=== PATIENT | male | born 1945 | race Caucasian/White ===

== ENCOUNTER → 2018-03-10 11:35 | Outpatient (CLI) | payer MEDICARE, SELFPAY ==
[2018-03-10 12:54] LABS: BUN Creatinine Ratio 23.8 (6-22); Blood Urea Nitrogen 19 mg/dL (9-20); Calcium 9.7 mg/dL (8.4-10.2); Carbon Dioxide 30 mmol/L (22-32); Chloride 107 mmol/L (98-107); Estimated Glomerular Filt Rate > 60.0 mL/min (>60); Glucose 94 mg/dL (80-110); HEMOLYSIS < 15 (0-50); Potassium 4.7 mmol/L (3.4-5.1); Sodium 145 mmol/L (137-145)
== END ==
PROVIDERS: PCP Internal Medicine; Visit Provider Nurse Practitioner Family
DX: Z51.81 Encounter for therapeutic drug level monitoring (principal); Z79.899 Other long term (current) drug therapy
CPT/HCPCS: 36415; 80048

== ENCOUNTER → 2018-05-02 13:31 | Outpatient (CLI) | payer MEDICARE, SELFPAY ==
[2018-05-02 14:10] LABS: BUN Creatinine Ratio 33.8 (6-22); Blood Urea Nitrogen 27 mg/dL (9-20); Calcium 9.6 mg/dL (8.4-10.2); Carbon Dioxide 32 mmol/L (22-32); Chloride 104 mmol/L (98-107); Estimated Glomerular Filt Rate > 60.0 mL/min (>60); Glucose 102 mg/dL (80-110); HEMOLYSIS < 15 (0-50); Potassium 4.4 mmol/L (3.4-5.1); Sodium 145 mmol/L (137-145)
== END ==
PROVIDERS: PCP Internal Medicine; Visit Provider Nurse Practitioner Family
DX: Z51.81 Encounter for therapeutic drug level monitoring (principal); Z79.899 Other long term (current) drug therapy
CPT/HCPCS: 36415; 80048

== ENCOUNTER → 2018-10-01 13:41 | Outpatient (CLI) | payer MEDICARE, SELFPAY ==
[2018-10-01 14:41] LABS: BUN Creatinine Ratio 26.7 (6-22); Blood Urea Nitrogen 24 mg/dL (9-20); Calcium 9.6 mg/dL (8.4-10.2); Carbon Dioxide 27 mmol/L (22-32); Chloride 104 mmol/L (98-107); Estimated Glomerular Filt Rate > 60.0 mL/min (>60); Glucose 117 mg/dL (80-110); HEMOLYSIS 17 (0-50); Potassium 4.2 mmol/L (3.4-5.1); Sodium 141 mmol/L (137-145)
== END ==
PROVIDERS: Family Provider Internal Medicine; PCP Internal Medicine; Visit Provider Nurse Practitioner Family
DX: Z51.81 Encounter for therapeutic drug level monitoring (principal); Z79.899 Other long term (current) drug therapy
CPT/HCPCS: 36415; 80048

== ENCOUNTER → 2019-05-28 10:23 | Outpatient (CLI) | payer MEDICARE, SELFPAY ==
[2019-05-28 12:05] LABS: BUN Creatinine Ratio 25.6 (6-22); Blood Urea Nitrogen 23 mg/dL (9-20); Calcium 9.8 mg/dL (8.4-10.2); Carbon Dioxide 30 mmol/L (22-32); Chloride 103 mmol/L (98-107); Estimated Glomerular Filt Rate > 60.0 mL/min (>60); Glucose 72 mg/dL (80-110); HEMOLYSIS < 15 (0-50); Potassium 4.5 mmol/L (3.4-5.1); Sodium 139 mmol/L (137-145)
== END ==
PROVIDERS: Family Provider Internal Medicine; PCP Internal Medicine; Visit Provider Internal Medicine Cardiovascular Disease
DX: Z51.81 Encounter for therapeutic drug level monitoring (principal); Z79.899 Other long term (current) drug therapy
CPT/HCPCS: 36415; 80048

== ENCOUNTER → 2019-09-03 09:51 | Outpatient (CLI) | payer MEDICARE, SELFPAY ==
[2019-09-03 12:28] LABS: BUN Creatinine Ratio 22.5 (6-22); Blood Urea Nitrogen 18 mg/dL (9-20); Calcium 9.9 mg/dL (8.4-10.2); Carbon Dioxide 27 mmol/L (22-32); Chloride 102 mmol/L (98-107); Estimated Glomerular Filt Rate > 60.0 mL/min (>60); Glucose 87 mg/dL (80-110); HEMOLYSIS < 15 (0-50); Potassium 4.7 mmol/L (3.4-5.1); Sodium 141 mmol/L (137-145)
== END ==
PROVIDERS: Family Provider Internal Medicine; PCP Internal Medicine; Referring Provider Internal Medicine Cardiovascular Disease; Visit Provider Internal Medicine Cardiovascular Disease
DX: Z51.81 Encounter for therapeutic drug level monitoring (principal); Z79.899 Other long term (current) drug therapy
CPT/HCPCS: 36415; 80048

== ENCOUNTER → 2020-03-23 13:27 | Outpatient (CLI) | payer MEDICARE, OTHER, SELFPAY ==
[2020-03-23 15:13] LABS: BUN Creatinine Ratio 30.9 (6-22); Blood Urea Nitrogen 25 mg/dL (9-20); Calcium 9.6 mg/dL (8.4-10.2); Carbon Dioxide 31 mmol/L (22-32); Chloride 106 mmol/L (98-107); Estimated Glomerular Filt Rate > 60.0 mL/min (>60); Glucose 105 mg/dL (80-110); HEMOLYSIS < 15 (0-50); Potassium 4.7 mmol/L (3.4-5.1); Sodium 141 mmol/L (137-145)
== END ==
PROVIDERS: Family Provider Internal Medicine; PCP Internal Medicine; Referring Provider Internal Medicine Cardiovascular Disease; Visit Provider Internal Medicine Cardiovascular Disease
DX: Z51.81 Encounter for therapeutic drug level monitoring (principal); Z79.899 Other long term (current) drug therapy
CPT/HCPCS: 36415; 80048

== ENCOUNTER → 2020-06-14 13:44 | Outpatient (CLI) | payer MEDICARE, OTHER, SELFPAY ==
[2020-06-14 16:06] LABS: BUN Creatinine Ratio 21.7 (6-22); Blood Urea Nitrogen 20 mg/dL (9-20); Calcium 9.3 mg/dL (8.4-10.2); Carbon Dioxide 28 mmol/L (22-32); Chloride 106 mmol/L (98-107); Estimated Glomerular Filt Rate > 60.0 mL/min (>60); Glucose 94 mg/dL (80-110); HEMOLYSIS < 15 (0-50); Potassium 4.6 mmol/L (3.4-5.1); Sodium 140 mmol/L (137-145)
== END ==
PROVIDERS: Family Provider Internal Medicine; PCP Internal Medicine; Referring Provider Nurse Practitioner Family; Visit Provider Nurse Practitioner Family
DX: Z51.81 Encounter for therapeutic drug level monitoring (principal); Z79.899 Other long term (current) drug therapy
CPT/HCPCS: 36415; 80048

== ENCOUNTER → 2020-10-31 11:19 | Outpatient (CLI) | payer MEDICARE, OTHER, SELFPAY ==
[2020-10-31 12:45] LABS: BUN Creatinine Ratio 28.2 (6-22); Blood Urea Nitrogen 22 mg/dL (9-20); Calcium 9.6 mg/dL (8.4-10.2); Carbon Dioxide 27 mmol/L (22-32); Chloride 104 mmol/L (98-107); Estimated Glomerular Filt Rate > 60.0 mL/min (>60); Glucose 107 mg/dL (80-110); HEMOLYSIS < 15 (0-50); Potassium 4.8 mmol/L (3.4-5.1); Sodium 139 mmol/L (137-145)
== END ==
PROVIDERS: Family Provider Internal Medicine; PCP Internal Medicine; Referring Provider Nurse Practitioner Family; Visit Provider Nurse Practitioner Family
DX: Z51.81 Encounter for therapeutic drug level monitoring (principal); Z79.899 Other long term (current) drug therapy
CPT/HCPCS: 36415; 80048

== ENCOUNTER → 2021-05-23 13:13 | Outpatient (CLI) | payer MEDICARE, OTHER, SELFPAY ==
[2021-05-23 16:09] LABS: BUN Creatinine Ratio 22.5 (6-22); Blood Urea Nitrogen 18 mg/dL (9-20); Calcium 9.6 mg/dL (8.4-10.2); Carbon Dioxide 29 mmol/L (22-32); Chloride 107 mmol/L (98-107); Estimated Glomerular Filt Rate > 60.0 mL/min (>60); Glucose 105 mg/dL (80-110); HEMOLYSIS < 15 (0-50); Potassium 4.8 mmol/L (3.4-5.1); Sodium 143 mmol/L (137-145)
== END ==
PROVIDERS: Family Provider Internal Medicine; PCP Internal Medicine; Referring Provider Nurse Practitioner Acute Care; Visit Provider Nurse Practitioner Acute Care
DX: Z51.81 Encounter for therapeutic drug level monitoring (principal); Z79.899 Other long term (current) drug therapy
CPT/HCPCS: 36415; 80048

== ENCOUNTER → 2021-07-01 12:08 | Outpatient (CLI) | payer MEDICARE, OTHER, SELFPAY ==
[2021-07-01 18:14] LABS: Alanine Aminotransferase 55 IU/L (<50); Albumin 4.4 g/dL (3.5-5.0); Alkaline Phosphatase 32 U/L (38-126); Aspartate Aminotransferase 56 IU/L (17-59); BUN Creatinine Ratio 29.9 (6-22); Bilirubin Total 0.8 mg/dL (0.2-1.3); Blood Urea Nitrogen 23 mg/dL (9-20); Calcium 9.6 mg/dL (8.4-10.2); Carbon Dioxide 30 mmol/L (22-32); Chloride 107 mmol/L (98-107); Cholesterol 138 mg/dL (140-199); Estimated Glomerular Filt Rate > 60.0 mL/min (>60); Globulin 2.2 g/dL (1.7-4.1); Glucose 100 mg/dL (80-110); HDL Cholesterol 74 mg/dL (40-60); HEMOLYSIS < 15 (0-50); LDL Cholesterol Calculated 42 mg/dL (<100); Potassium 4.9 mmol/L (3.4-5.1); Sodium 139 mmol/L (137-145); Total Protein 6.6 g/dL (6.3-8.2); Triglycerides 109 mg/dL (35-150)
== END ==
PROVIDERS: Family Provider Internal Medicine; PCP Internal Medicine; Referring Provider Internal Medicine; Visit Provider Internal Medicine
DX: E78.2 Mixed hyperlipidemia (principal); I48.0 Paroxysmal atrial fibrillation
CPT/HCPCS: 36415; 80053; 80061

== ENCOUNTER → 2021-10-10 14:10 | Outpatient (CLI) | payer MEDICARE, OTHER, SELFPAY ==
[2021-10-10 15:49] LABS: BUN Creatinine Ratio 32.1 (6-22); Blood Urea Nitrogen 25 mg/dL (9-20); Calcium 9.4 mg/dL (8.4-10.2); Carbon Dioxide 26 mmol/L (22-32); Chloride 108 mmol/L (98-107); Estimated Glomerular Filt Rate > 60.0 mL/min (>60); Glucose 100 mg/dL (80-110); HEMOLYSIS < 15 (0-50); Potassium 4.5 mmol/L (3.4-5.1); Sodium 142 mmol/L (137-145)
== END ==
PROVIDERS: Family Provider Internal Medicine; PCP Internal Medicine; Referring Provider Nurse Practitioner Acute Care; Visit Provider Nurse Practitioner Acute Care
DX: Z51.81 Encounter for therapeutic drug level monitoring (principal); Z79.899 Other long term (current) drug therapy
CPT/HCPCS: 36415; 80048

== ENCOUNTER 2021-11-27 14:15 | Outpatient (RCR) | payer MEDICARE, OTHER, SELFPAY ==
--- NOTE | 2021-11-27 16:00 | PT.OIE ---
Current Diagnoses Benign paroxysmal vertigo, unspecified ear (11/27/21) Past Medical History (Last Updated 11/13/21 @ 12:20 by Alfredo Ochoa MD) BPPV (benign paroxysmal positional vertigo) Chronic anticoagulation Excessive daytime sleepiness Glaucoma Insomnia Mixed hyperlipidemia Obstructive sleep apnea of adult (~2013) Paroxysmal atrial fibrillation Primary osteoarthritis involving multiple joints Snoring Ulnar neuropathy of left upper extremity Visit Care Team Role Provider Type Alfredo Ochoa MD Attending Provider Physician Family Provider Primary Care Provider Referring Provider Specialty: Internal Medicine Address: [address] [place] [address], [facility] Email: [email or web address] Physical Therapy Initial Evaluation PT-OP-A Visit Information Start: 11/26/21 12:54 Freq: Status: Active Protocol: Document 11/27/21 14:31 AMB (Rec: 11/27/21 14:46 AMB [id number]) Out-Patient Physical Therapy Visit Information Visit Information Visit Type Initial Evaluation PT-OP-B Current Condition Start: 11/26/21 12:54 Freq: Status: Active Protocol: Document 11/27/21 14:31 AMB (Rec: 11/27/21 14:46 AMB [id number]) Current Condition History of Current Condition Onset Date 25 years Current Complaints dizzines History of Current Condition Would get 3-4 attacks in a year and have just dealt with it for years. Dizziness usually starts by getting up early in the morning. Saw an ENT 10-15 years ago and got really sick from the maneuvers . Not as acute now, but persisting longer. Used to vomit with them, not nauseous any more. Rolling over to the right to get out of bed and that makes him symptomatic. Had a concussion as a child, but otherwise denies migraines , ear pressure, ear pain, hearing changes, double vision . Prior Functional Status Baseline Function- ADL's Independent Baseline Function- Mobility Independent Current Functional Impairments (Reported) Functional Limitations- ADL's Difficulty getting out of bed and looking up. 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 PT-OP-C Subjective Start: 11/26/21 12:54 Freq: Status: Active Protocol: Document 11/27/21 14:30 AMB (Rec: 11/28/21 08:15 AMB [id number]) Patient Questionnaires Dizziness Handicap Inventory DHI Score 25 DHI Functional Impairment 20 to 39% Impaired (Score 20- 39) PT-OP-O Vestibular Start: 11/26/21 12:54 Freq: Status: Active Protocol: Document 11/27/21 14:30 AMB (Rec: 11/28/21 08:15 AMB [id number]) Vestibular Assessment Visual Testing Smooth Pursuits Horizontal WFL Smooth Pursuits Vertical WFL Saccades Horizontal WFL Saccades Vertical WFL Thrust Head Negative DVA (Line Degradation) 5 Vestibulo-Ocular Reflex (VOR1) Negative Positional Testing [place]-Hallpike Negative Left,Negative Right Rolling Test Negative Left,Negative Right Vestibular Function Tests mCTSIB Position 1 good mCTSIB Position 2 good mCTSIB Position 3 good mCTSIB Position 4 increased ankle motion but no LOB Comments Vestibular Comments Denies neck pain. 5 line deviation with DVA (wearing transitions), but then does not report any blurring or double vision with quick head turn PT-OP-T Assessment and Plan Start: 11/26/21 12:54 Freq: Status: Active Protocol: Document 11/27/21 14:30 AMB (Rec: 11/28/21 08:15 AMB [id number]) Physical Therapy Assessment Rehab Potential Rehabilitation Potential Good Evaluation Complexity Number of Personal Factors/Comorbidities 0 Number of Body Systems Impaired 1-2 Clinical Presentation at Evaluation Stable Impairments Impairments Vestibular Goals Two Impairment Dizziness Short Term Goal (STG) Edgar will get out of bed without dizziness. STG Duration 4 weeks One Impairment self Shira manuever Short Term Goal (STG) Edgar will be independent in performing an Shira manuever. STG Duration 4 weeks Assessment Summary Assessment Edgar attends physical therapy with a long history of recurrent dizziness/vertigo. He specifically denies hearing changes and was seen by an ENT years ago. He personally feels he has had recurrent BPPV. He did not show any signs of BPPV today, although he admits he is having a good day today. He was educated in self Shira manuevers and the nature of BPPV was discussed. He is considering returning to PT if he does get symptoms over the next couple of weeks. If he remains asymptomatic we will discharge and he was instructed to request referral the next time he gets a bout of dizziness. Physical Therapy Plan Frequency and Duration Frequency of Treatment 1x/Week Duration of Treatment 4 weeks Plan of Care Start Date 11/27/21 Plan of Care End Date 12/28/21 Therapeutic Interventions Therapeutic Interventions Balance Training,Canalithic Repositioning,Manual Therapy, Neuromuscular Re-education, Self-Care/Home Management, Therapeutic Activities, Therapeutic Exercises, Vestibular Rehabilitation Next Visit Focus/Plan Next Note Type Treatment Note Next Visit Plan recheck bilateral [place] Hallpike
--- NOTE | 2021-11-27 16:00 | PT.OPPOC ---
Addendum entered and electronically signed by Mikki Workman, PT 11/28/21 09:24: meek PERDUE signature Original Note: Physical, Occupational & Speech Therapy At [facility] Current Diagnoses Benign paroxysmal vertigo, unspecified ear (11/27/21) Visit Care Team Role Provider Type Alfredo Ochoa MD Attending Provider Physician Family Provider Primary Care Provider Referring Provider Specialty: Internal Medicine Address: [address] [place] [address], [facility] Email: [email or web address] Plan Of Care PT-OP-T Assessment and Plan Start: 11/26/21 12:54 Freq: Status: Active Protocol: Document 11/27/21 14:30 AMB (Rec: 11/28/21 08:15 AMB [id number]) Physical Therapy Assessment Rehab Potential Rehabilitation Potential Good Evaluation Complexity Number of Personal Factors/Comorbidities 0 Number of Body Systems Impaired 1-2 Clinical Presentation at Evaluation Stable Impairments Impairments Vestibular Goals Two Impairment Dizziness Short Term Goal (STG) Edgar will get out of bed without dizziness. STG Duration 4 weeks One Impairment self Shira manuever Short Term Goal (STG) Edgar will be independent in performing an Shira manuever. STG Duration 4 weeks Assessment Summary Assessment Edgar attends physical therapy with a long history of recurrent dizziness/vertigo. He specifically denies hearing changes and was seen by an ENT years ago. He personally feels he has had recurrent BPPV. He did not show any signs of BPPV today, although he admits he is having a good day today. He was educated in self Shira manuevers and the nature of BPPV was discussed. He is considering returning to PT if he does get symptoms over the next couple of weeks. If he remains asymptomatic we will discharge and he was instructed to request referral the next time he gets a bout of dizziness. Physical Therapy Plan Frequency and Duration Frequency of Treatment 1x/Week Duration of Treatment 4 weeks Plan of Care Start Date 11/27/21 Plan of Care End Date 12/28/21 Therapeutic Interventions Therapeutic Interventions Balance Training,Canalithic Repositioning,Manual Therapy, Neuromuscular Re-education, Self-Care/Home Management, Therapeutic Activities, Therapeutic Exercises, Vestibular Rehabilitation Next Visit Focus/Plan Next Note Type Treatment Note Next Visit Plan recheck bilateral [place] Hallpike Plan of Care Dates Plan of Care Start Date 11/27/21 Plan of Care End Date 12/28/21 Electronically Signed by: Mikki Workman, ALMAS 11/28/21 0922 If you are in agreement with this Plan of Care, please return a signed and dated copy. I have reviewed this Plan of Care and certify that the skilled therapy services above are required to meet the patient?s needs. Physician Signature Date Printed Name and Credentials Clinical Instructor Signature Printed Name and Credentials
--- NOTE | 2021-12-17 11:51 | PT.OPDS ---
Current Diagnoses Benign paroxysmal vertigo, unspecified ear (11/27/21) Visit Care Team Role Provider Type Alfredo Ochoa MD Attending Provider Physician Family Provider Primary Care Provider Referring Provider Specialty: Internal Medicine Address: [address] [place] [address], [facility] Email: [email or web address] Visit Number Visit Number 1 Discharge Summary PT-OP-B Current Condition Start: 11/26/21 12:54 Freq: Status: Active Protocol: Document 11/27/21 14:31 AMB (Rec: 11/27/21 14:46 AMB [id number]) Current Condition History of Current Condition Onset Date 25 years Current Complaints dizzines History of Current Condition Would get 3-4 attacks in a year and have just dealt with it for years. Dizziness usually starts by getting up early in the morning. Saw an ENT 10-15 years ago and got really sick from the maneuvers . Not as acute now, but persisting longer. Used to vomit with them, not nauseous any more. Rolling over to the right to get out of bed and that makes him symptomatic. Had a concussion as a child, but otherwise denies migraines , ear pressure, ear pain, hearing changes, double vision . Prior Functional Status Baseline Function- ADL's Independent Baseline Function- Mobility Independent Current Functional Impairments (Reported) Functional Limitations- ADL's Difficulty getting out of bed and looking up. 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 PT-OP-C Subjective Start: 11/26/21 12:54 Freq: Status: Active Protocol: Document 11/27/21 14:30 AMB (Rec: 11/28/21 08:15 AMB [id number]) Patient Questionnaires Dizziness Handicap Inventory DHI Score 25 DHI Functional Impairment 20 to 39% Impaired (Score 20- 39) PT-OP-O Vestibular Start: 11/26/21 12:54 Freq: Status: Active Protocol: Document 11/27/21 14:30 AMB (Rec: 11/28/21 08:15 AMB [id number]) Vestibular Assessment Visual Testing Smooth Pursuits Horizontal WFL Smooth Pursuits Vertical WFL Saccades Horizontal WFL Saccades Vertical WFL Thrust Head Negative DVA (Line Degradation) 5 Vestibulo-Ocular Reflex (VOR1) Negative Positional Testing [place]-Hallpike Negative Left,Negative Right Rolling Test Negative Left,Negative Right Vestibular Function Tests mCTSIB Position 1 good mCTSIB Position 2 good mCTSIB Position 3 good mCTSIB Position 4 increased ankle motion but no LOB Comments Vestibular Comments Denies neck pain. 5 line deviation with DVA (wearing transitions), but then does not report any blurring or double vision with quick head turn PT-OP-T Assessment and Plan Start: 11/26/21 12:54 Freq: Status: Active Protocol: Document 12/17/21 11:50 AMB (Rec: 12/17/21 11:50 [facility] [id number]) Physical Therapy Assessment Assessment Summary Assessment Pt cancelled his last scheduled appointment per discussion at his evaluation. If he did not have a return of BPPV like sx he would cancel his appointment, and if his sx return he would get another referral from his PCP.
== END 2021-12-18 14:16 ==
LOC: PHYS 14:15
PROVIDERS: Family Provider Internal Medicine; PCP Internal Medicine; Referring Provider Internal Medicine; Visit Provider Internal Medicine
DX: H81.10 Benign paroxysmal vertigo, unspecified ear (principal)
CPT/HCPCS: 97161

== ENCOUNTER → 2021-12-29 17:13 | Outpatient (CLI) | payer MEDICARE, OTHER, SELFPAY ==
[2021-12-30 02:16] LABS: BUN Creatinine Ratio 34.1 (6-22); Blood Urea Nitrogen 31 mg/dL (9-20); Calcium 9.4 mg/dL (8.4-10.2); Carbon Dioxide 26 mmol/L (22-32); Chloride 107 mmol/L (98-107); Estimated Glomerular Filt Rate > 60 mL/min (>60); Glucose 89 mg/dL (80-110); HEMOLYSIS < 15 (0-50); Potassium 4.4 mmol/L (3.4-5.1); Sodium 141 mmol/L (137-145)
== END ==
PROVIDERS: Family Provider Internal Medicine; PCP Internal Medicine; Referring Provider Nurse Practitioner Acute Care; Visit Provider Nurse Practitioner Acute Care
DX: Z51.81 Encounter for therapeutic drug level monitoring (principal); Z79.899 Other long term (current) drug therapy
CPT/HCPCS: 36415; 80048

== ENCOUNTER → 2022-03-29 13:23 | Outpatient (CLI) | payer MEDICARE, OTHER, SELFPAY ==
[2022-03-29 15:53] LABS: BUN Creatinine Ratio 37.8 (6-22); Blood Urea Nitrogen 28 mg/dL (9-20); Calcium 9.2 mg/dL (8.4-10.2); Carbon Dioxide 28 mmol/L (22-32); Chloride 105 mmol/L (98-107); Estimated Glomerular Filt Rate > 60 mL/min (>60); Glucose 103 mg/dL (80-110); HEMOLYSIS < 15 (0-50); Potassium 4.5 mmol/L (3.4-5.1); Sodium 140 mmol/L (137-145)
== END ==
PROVIDERS: Family Provider Internal Medicine; PCP Internal Medicine; Referring Provider Nurse Practitioner Family; Visit Provider Nurse Practitioner Family
DX: I48.19 Other persistent atrial fibrillation (principal); Z51.81 Encounter for therapeutic drug level monitoring; Z79.899 Other long term (current) drug therapy
CPT/HCPCS: 36415; 80048

== ENCOUNTER → 2022-07-03 10:52 | Outpatient (CLI) | payer MEDICARE, OTHER, SELFPAY ==
[2022-07-03 11:55] LABS: Alanine Aminotransferase 84 IU/L (<50); Albumin 4.6 g/dL (3.5-5.0); Albumin Globulin Ratio 1.9 (1.0-2.8); Alkaline Phosphatase 35 U/L (38-126); Aspartate Aminotransferase 66 IU/L (17-59); BUN Creatinine Ratio 36.4 (6-22); Bilirubin Total 0.6 mg/dL (0.2-1.3); Blood Urea Nitrogen 28 mg/dL (9-20); Calcium 9.3 mg/dL (8.4-10.2); Carbon Dioxide 30 mmol/L (22-32); Chloride 105 mmol/L (98-107); Estimated Glomerular Filt Rate > 60 mL/min (>60); Globulin 2.4 g/dL (1.7-4.1); Glucose 89 mg/dL (80-110); HEMOLYSIS < 15 (0-50); Potassium 4.4 mmol/L (3.4-5.1); Sodium 142 mmol/L (137-145)
== END ==
PROVIDERS: Family Provider Internal Medicine; PCP Internal Medicine; Referring Provider Nurse Practitioner; Visit Provider Nurse Practitioner
DX: I48.19 Other persistent atrial fibrillation (principal)
CPT/HCPCS: 36415; 80053

== ENCOUNTER → 2023-01-25 10:50 | Outpatient (CLI) | payer MEDICARE, OTHER, SELFPAY ==
[2023-01-25 12:41] LABS: Alanine Aminotransferase 41 IU/L (<50); Albumin 4.2 g/dL (3.5-5.0); Albumin Globulin Ratio 1.8 (1.0-2.8); Alkaline Phosphatase 37 U/L (38-126); Aspartate Aminotransferase 46 IU/L (17-59); BUN Creatinine Ratio 32.4 (6-22); Bilirubin Total 0.9 mg/dL (0.2-1.3); Blood Urea Nitrogen 23 mg/dL (9-20); Carbon Dioxide 30 mmol/L (22-32); Chloride 103 mmol/L (98-107); Estimated Glomerular Filt Rate > 60 mL/min (>60); Globulin 2.4 g/dL (1.7-4.1); Glucose 93 mg/dL (80-110); HEMOLYSIS < 15 (0-50); Potassium 4.2 mmol/L (3.4-5.1); Sodium 138 mmol/L (137-145); Total Protein 6.6 g/dL (6.3-8.2)
== END ==
PROVIDERS: Family Provider Internal Medicine; PCP Internal Medicine; Referring Provider Nurse Practitioner; Visit Provider Nurse Practitioner
DX: I48.19 Other persistent atrial fibrillation (principal)
CPT/HCPCS: 36415; 80053

== ENCOUNTER → 2023-04-03 09:21 | Outpatient (CLI) | payer MEDICARE, OTHER, SELFPAY ==
[2023-04-03 11:58] LABS: Prostate Specific Antigen 1.77 ng/mL (0.10-4.00)
== END ==
PROVIDERS: Family Provider Internal Medicine; PCP Internal Medicine; Referring Provider Internal Medicine; Visit Provider Internal Medicine
DX: N40.1 Benign prostatic hyperplasia with lower urinary tract symptoms (principal); N13.8 Other obstructive and reflux uropathy; R31.0 Gross hematuria
CPT/HCPCS: 36415; 84153

== ENCOUNTER → 2023-05-07 14:45 | Outpatient (CLI) | payer MEDICARE, OTHER, SELFPAY ==
[2023-05-07 15:44] LABS: Blood Urea Nitrogen 27 mg/dL (9-20); Calcium 9.6 mg/dL (8.4-10.2); Carbon Dioxide 29 mmol/L (22-32); Chloride 102 mmol/L (98-107); Estimated Glomerular Filt Rate > 60 mL/min (>60); Glucose 106 mg/dL (80-110); HEMOLYSIS 19 (0-50); Magnesium 1.9 mg/dL (1.6-2.3); Potassium 4.6 mmol/L (3.4-5.1); Sodium 137 mmol/L (137-145)
== END ==
PROVIDERS: Family Provider Internal Medicine; PCP Internal Medicine; Referring Provider Nurse Practitioner Acute Care; Visit Provider Nurse Practitioner Acute Care
DX: I48.19 Other persistent atrial fibrillation (principal); Z51.81 Encounter for therapeutic drug level monitoring; Z79.899 Other long term (current) drug therapy
CPT/HCPCS: 36415; 80048; 83735

== ENCOUNTER → 2023-06-18 11:00 | Outpatient (CLI) | payer MEDICARE, OTHER, SELFPAY ==
--- NOTE | 2023-06-18 11:03 | DI.CT.S_ITS ---
PROCEDURE: CT IVP A/P W/WO INDICATIONS: Prostate Nodule TECHNIQUE: Optional 5 mm thick noncontrast images acquired from the diaphragm to the symphysis pubis. After the administration of intravenous contrast, 5 mm thick images acquired from the diaphragm to the symphysis pubis after a 10-minute delay. 2 mm thick coronal and sagittal reformats were then performed of the kidneys and ureters. For radiation dose reduction, the following was used: automated exposure control, adjustment of mA and/or kV according to patient size. COMPARISON: None. FINDINGS: Image quality: Excellent. Lung bases: Lung bases are clear. Heart size is normal. Urinary system: Both kidneys are normal in size with no hydronephrosis. Nonobstructive nephrolith in the right lower pole measuring 3 mm (2/37). Left upper pole nonobstructive nephrolith measuring 3 mm. Left lower pole nonobstructive nephrolith measuring 2 mm (2/38). Bilateral subcentimeter cortical hypodensities are too small to characterize, statistically cysts No perinephric fat stranding. There is normal bilateral renal enhancement. Renal calyces appear normal in morphology when filled with contrast. Opacified portions of both ureters demonstrate normal caliber. Bladder is under distended, limiting evaluation. Within these limitations, no suspicious filling defect. No calcified bladder stones. Other solid organs: Liver is normal in size and enhancement. Simple cysts in the hepatic dome measuring 6.3 x 5.5 cm. Additional scattered subcentimeter hypodensities are too small to characterize, likely tiny cysts. Gallbladder is unremarkable. Biliary system is non dilated. Pancreas enhances normally. Spleen is normal in size and enhancement. Scattered subcentimeter calcified granulomas in the spleen, likely sequela of prior granulomatous infection. No adrenal nodules. Peritoneum and bowel: Bowel loops demonstrate normal wall thickness and caliber. Normal appendix (4/146). No free fluid or air. Nodes and vessels: No retroperitoneal or mesenteric adenopathy by size criteria. Aorta and inferior vena cava are normal in size. Mild calcification of the abdominal aorta. Patent hepatic, portal, splenic and bilateral renal veins. Abdominal wall: No ventral hernias. Pelvis: Mild prostatomegaly with dystrophic calcifications. Delayed phase imaging is suboptimal to evaluate for prostate nodule. No pathologic free pelvic fluid. Small bilateral inguinal hernias containing fat and nondilated small bowel on the right and fat on the left (4/188). Bones: No suspicious bony lesions. No vertebral body compression fractures. Anterior fusion hardware with interbody disc spacer at L5-S1 is intact. Moderate multilevel degenerative changes of the spine wound with slight dextroconvex curvature centered at L2-L3. IMPRESSION: 1. Bilateral nonobstructive nephroliths measuring up to 3 mm. 2. No suspicious solid mass or suspicious filling defect in the collecting system. 3. Mild prostatomegaly. Delayed phase contrast is suboptimal to evaluate for prostate nodule. If there is clinical concern for prostate pathology, recommend MRI of the prostate for further evaluation. Dictated by: Alfonso Whitehead M.D. on 06/18/2023 at 18:43 Approved by: Alfonso Whitehead M.D. on 06/18/2023 at 18:55
[2023-06-18 11:29] LABS: Estimated Glomerular Filt Rate > 60 mL/min (>60)
== END ==
PROVIDERS: Radiology Diagnostic Radiology; Family Provider Internal Medicine; PCP Internal Medicine; Referring Provider Specialist; Visit Provider Specialist
DX: N40.3 Nodular prostate with lower urinary tract symptoms (principal); N13.8 Other obstructive and reflux uropathy; N20.0 Calculus of kidney
CPT/HCPCS: 36415; 74178; 82565; Q9967

== ENCOUNTER → 2023-07-30 11:36 | Outpatient (CLI) | payer MEDICARE, OTHER, SELFPAY ==
[2023-07-30 13:31] LABS: Blood Urea Nitrogen 24 mg/dL (9-20); Calcium 10.1 mg/dL (8.4-10.2); Carbon Dioxide 27 mmol/L (22-32); Chloride 105 mmol/L (98-107); Estimated Glomerular Filt Rate > 60 mL/min (>60); Glucose 95 mg/dL (80-110); HEMOLYSIS < 15 (0-50); Potassium 4.5 mmol/L (3.4-5.1); Sodium 138 mmol/L (137-145)
== END ==
LOC: LAB 11:39
PROVIDERS: Family Provider Internal Medicine; PCP Internal Medicine; Referring Provider Nurse Practitioner Family; Visit Provider Nurse Practitioner Family
DX: Z51.81 Encounter for therapeutic drug level monitoring (principal); Z79.899 Other long term (current) drug therapy
CPT/HCPCS: 36415; 80048

== ENCOUNTER → 2023-09-19 16:03 | Outpatient (CLI) | payer MEDICARE, OTHER, SELFPAY ==
[2023-09-19 17:38] LABS: Hematocrit 39.7 % (41-53); Hemoglobin 13.9 g/dL (13.5-17.5); Mean Corpuscular Hemoglobin 34.3 PG (26-34); Mean Corpuscular Volume 98.1 fL (80-100); Platelet Count 142 X10^3/uL (150-400); Red Blood Cell Count 4.05 X10^6/uL (4.5-5.9); Red Cell Distribution Width 12.5 % (11.6-14.8); White Blood Cell Count 4.1 X10^3/uL (4.5-11.0)
[2023-09-19 17:44] LABS: Appearance Urine UA CLEAR; Bilirubin Urine UA NEGATIVE (NEGATIVE); Color Urine UA YELLOW; Glucose Urine UA NEGATIVE (Negative); Ketones Urine UA NEGATIVE (NEGATIVE); Leukocyte Esterase Urine UA NEGATIVE (NEGATIVE); Nitrite Urine UA NEGATIVE (Negative); Occult Blood Urine UA NEGATIVE (Negative); Protein Urine UA NEGATIVE (Negative); pH Urine UA 5.5 (4.5-8.0)
[2023-09-19 17:50] LABS: Prothrombin Time 11.1 SECONDS (9.4-12.5)
[2023-09-19 17:53] LABS: HEMOLYSIS < 15 (0-50); Iron 98 ug/dL (49-181)
[2023-09-19 18:01] LABS: Alanine Aminotransferase 46 IU/L (<50); Albumin 4.3 g/dL (3.5-5.0); Albumin Globulin Ratio 1.7 (1.0-2.8); Alkaline Phosphatase 37 U/L (38-126); Aspartate Aminotransferase 41 IU/L (17-59); BUN Creatinine Ratio 35.6 (6-22); Bilirubin Total 0.9 mg/dL (0.2-1.3); Blood Urea Nitrogen 32 mg/dL (9-20); Calcium 9.2 mg/dL (8.4-10.2); Carbon Dioxide 30 mmol/L (22-32); Chloride 108 mmol/L (98-107); Estimated Glomerular Filt Rate > 60 mL/min (>60); Globulin 2.5 g/dL (1.7-4.1); Glucose 88 mg/dL (80-110); HEMOLYSIS < 15 (0-50); Potassium 4.3 mmol/L (3.4-5.1); Sodium 140 mmol/L (137-145); Total Protein 6.8 g/dL (6.3-8.2)
[2023-09-19 18:04] LABS: Percent Iron Saturation 38 % (20-50); Total Iron Binding Capacity 256 ug/dL (261-462); Transferrin 193 mg/dL (206-381)
[2023-09-19 18:14] LABS: Bacteria Urine Occasional (0-1); Culture Indicated Urine Cult Not Indicated; RBC Urine 0-1/HPF (0-5/HPF); Squamous Epithelial Cell Urine 0-1 /HPF (0-5/HPF); Urine Volume 10mL (spun); WBC Urine 0-1/HPF (0-5/HPF)
== END ==
LOC: LAB 16:05
PROVIDERS: Family Provider Internal Medicine; PCP Internal Medicine; Referring Provider Internal Medicine; Visit Provider Internal Medicine
DX: I48.0 Paroxysmal atrial fibrillation (principal); Z79.01 Long term (current) use of anticoagulants; R31.0 Gross hematuria
CPT/HCPCS: 36415; 80053; 81001; 83540; 83550; 85027; 85610

== ENCOUNTER → 2023-09-25 13:52 | Outpatient (CLI) | payer MEDICARE, OTHER, SELFPAY ==
[2023-09-25 15:46] LABS: Prostate Specific Antigen 2.11 ng/mL (0.10-4.00)
== END ==
LOC: LAB 13:53
PROVIDERS: Family Provider Internal Medicine; PCP Internal Medicine; Referring Provider Specialist; Visit Provider Specialist
DX: N40.1 Benign prostatic hyperplasia with lower urinary tract symptoms (principal); N13.8 Other obstructive and reflux uropathy; N40.2 Nodular prostate without lower urinary tract symptoms
CPT/HCPCS: 36415; 84153

== ENCOUNTER 2023-10-17 10:30 | Outpatient (RCR) | payer MEDICARE, OTHER, SELFPAY ==
--- NOTE | 2023-10-08 16:00 | PT.OPPOC ---
Physical, Occupational & Speech Therapy At Current Diagnoses Pain in left knee (10/08/23) Visit Care Team Role Provider Type Alfredo Ochoa MD Attending Provider Physician Family Provider Primary Care Provider Referring Provider Specialty: Internal Medicine Address: [address] [place] [address], [id number] Email: [email or web address] Plan Of Care PT-OP-T Assessment and Plan Start: 10/07/23 16:30 Freq: Status: Active Protocol: Document 10/08/23 09:46 SAK (Rec: 10/09/23 16:39 SAK [id number]) Physical Therapy Assessment Goals Three Impairment balance dysfunction Short Term Goal (STG) Instruct patient in balance exercises for preparation for TKA rehab and to decrease fall risk STG Duration 11/13/23 Intermediate Goal (LTG) Patient to be independent and compliant with balance exercise and demonstrate good understanding of safe progression as tolerated LTG Duration 12/08/23 Two Impairment gait dysfunction Impairment antalgic gait, lacking knowledge of use of assistive devices Intermediate Goal (LTG) Patient to demonstrate safety and independnece with use of assistive devices for post-op rehab LTG Duration 12/08/23 One Impairment left LE weakness Short Term Goal (STG) Instruct patient in HEP for purposes of left LE strengthening in preparation for left TKA STG Duration 11/08/23 Intermediate Goal (LTG) Patient to be independent and compliant with HEP. LTG Duration 12/08/23 Assessment Summary Assessment Patient presents to PT with function limiting pain left knee, plan for TKA in December. Wants to prepare for surgery as much as possible with exercise and learn what to expect after surgery for best rehab results. Evaluation reveals limitation in ROM left knee, antalgic gait, weakness left knee and left hip extensors. He has not previously walked with an assistive device. Patient educated in use of front wheeled walker and cane for post-op use with instruction on correct fit and advised to obtain this. Initial instruction in HEP today. Requested patient ask surgeon about any recommendation for thigh high compression stocking for post-op edema control. Feel patient will benefit from physical therapy for individualized therapeiutic exercise for ROM, strengthening, and balance and further patient education prior to his TKA. POC was discussed and patient was in agreement. Physical Therapy Plan Frequency and Duration Frequency of Treatment 4 visits Duration of treatment (weeks) 8 Plan of Care Start Date 10/08/23 Plan of Care End Date 12/08/23 Therapeutic Interventions Therapeutic Interventions Balance Training,Gait Training ,Home Exercise Program,Manual Therapy,Neuromuscular Re- education,Patient/Caregiver Education,Self-Care/Home Management,Soft Tissue Mobilization,Taping, Therapeutic Activities, Therapeutic Exercises Modalities Cold Pack/Ice Massage,Electric Stimulation,Hot Packs Next Visit Focus/Plan Next Note Type Treatment Note Next Visit Plan Review HEP, progress ther ex including leg press single and double leg and hamstring curl single and double leg. Balance training. Plan of Care Dates Plan of Care Start Date 10/08/23 Plan of Care End Date 12/08/23 Electronically Signed by: Jasmyn Kee, PT 10/10/23 0814 If you are in agreement with this Plan of Care, please return a signed and dated copy. I have reviewed this Plan of Care and certify that the skilled therapy services above are required to meet the patient?s needs. Physician Signature Date Printed Name and Credentials Clinical Instructor Signature Printed Name and Credentials
--- NOTE | 2023-10-08 16:00 | PT.OIE ---
Current Diagnoses Pain in left knee (10/08/23) Past Medical History (Last Reviewed 09/26/23 @ 14:11 by Tejas Jain MD) BPH w urinary obs/LUTS BPPV (benign paroxysmal positional vertigo) Chronic anticoagulation Excessive daytime sleepiness Glaucoma Gross hematuria Insomnia Mixed hyperlipidemia Obstructive sleep apnea of adult (~2013) Paroxysmal atrial fibrillation Primary osteoarthritis involving multiple joints Prostate nodule Snoring Ulnar neuropathy of left upper extremity Past Surgical History (Last Reviewed 09/26/23 @ 14:11 by Tejas Jain MD) History of back surgery Visit Care Team Role Provider Type Alfredo Ochoa MD Attending Provider Physician Family Provider Primary Care Provider Referring Provider Specialty: Internal Medicine Address: [address] [place] [address] Email: [email or web address] Physical Therapy Initial Evaluation PT-OP-A Visit Information Start: 10/07/23 16:30 Freq: Status: Active Protocol: Document 10/08/23 09:46 [facility] (Rec: 10/08/23 10:34 [facility] [id number]) Out-Patient Physical Therapy Visit Information Visit Information Visit Type Initial Evaluation Visit Start Time 09:46 Visit Stop Time 10:30 Visit Number 1 Precautions Precautions patient takes blood thinners PT-OP-B Current Condition Start: 10/07/23 16:30 Freq: Status: Active Protocol: Document 10/08/23 09:46 [facility] (Rec: 10/08/23 10:34 [facility] [id number]) Current Condition History of Current Condition Onset Date 10+ year Current Complaints left knee pain History of Current Condition TKA left scheduled for December 23, 2023. Dr. Cueto in [place]. Has had some instruction, wants to go into surgery strong. Needs to know his limits. Currently limited to walking less than 1 mile. Goes to gym daily, tolerates elliptical 10- 18 min intervals, does a series of weights 30 min-45 min workouts. Used to hike 5-7 miles per day, sometimes very long hikes. Wants to be able to hike and move around on the boat with reasonable control. Doesnt do much flexibility training. Prior Treatments and Tests arthritis left knee Treatment Goals Patient/Caregiver Goals Optomize his function preoperatively. Prior Functional Status Baseline Function- ADL's Independent Baseline Function- Mobility Independent Baseline Function- Gait 5-7 miles per day Baseline Function- Recreation/Hobbies walking, hiking Current Functional Impairments (Reported) Functional Limitations- ADL's painful Functional Limitations- Mobility/Gait antalgic, limited distance Functional Limitations- Work/School retired physician Functional Limitations- Recreation/ unable to hike, limited to no Hobbies greater than 1 mile PT-OP-C Subjective Start: 10/07/23 16:30 Freq: Status: Active Protocol: Document 10/08/23 09:46 [facility] (Rec: 10/09/23 16:39 [facility] [id number]) Patient Questionnaires Lower Extremity Functional Scale LEFS Score 57 OP-PT Pain Assessment Pain Assessment Grid Paper Pain Assessment Grid Completed Yes Location left knee Intensity 5 PT-OP-G Mobility & Gait Start: 10/07/23 16:30 Freq: Status: Active Protocol: Document 10/08/23 09:46 [facility] (Rec: 10/09/23 16:39 [facility] [id number]) OP Gait Assessment Gait Gait Assistance Required: Independent Assistive Devices Assistive Device None Gait Deviations General Gait Pattern Antalgic Comments Gait Comments genu varus left LE PT-OP-H Neuro Start: 10/07/23 16:30 Freq: Status: Active Protocol: Document 10/08/23 09:46 [facility] (Rec: 10/09/23 16:39 [facility] [id number]) Sensation Evaluation Gross Sensation Gross Sensation WNL PT-OP-J Posture/Palpation/Skin Start: 10/07/23 16:30 Freq: Status: Active Protocol: Document 10/08/23 09:46 [facility] (Rec: 10/09/23 16:39 [facility] [id number]) Posture Evaluation Position stand Hip Posture (L) Externally Rotated,(R) Externally Rotated Knee Posture (L) Genu Varus Palpation Assessment Location left knee Palpation Findings Tenderness Palpation Details knee joint line PT-OP-K Range of Motion Start: 10/07/23 16:30 Freq: Status: Active Protocol: Document 10/08/23 09:46 [facility] (Rec: 10/09/23 16:39 [facility] [id number]) Hip Goniometric Range of Motion Hip Left Straight Leg Raise 55 right Straight Leg Raise 65 Hip ROM Limitations Hip ROM Limitations Soft Tissue Tightness Knee Goniometric Range of Motion Knee Left Flexion Active (degrees) 118 Extension Active (degrees) 5 Right Knee ROM WFL Yes Knee ROM Limitations Knee ROM Limitations Bony Restriction PT-OP-M Strength Start: 10/07/23 16:30 Freq: Status: Active Protocol: Document 10/08/23 09:46 [facility] (Rec: 10/09/23 16:39 [facility] [id number]) Hip Strength Hip Manual Muscle Testing Left Flexion (L2) 4+ Good+ Extension (S1) 4- Good- Abduction 4+ Good+ Adduction 4+ Good+ External Rotation 4+ Good+ Internal Rotation 4+ Good+ Right Flexion (L2) 4+ Good+ Extension (S1) 4+ Good+ Abduction 4+ Good+ Adduction 4+ Good+ External Rotation 4+ Good+ Internal Rotation 4+ Good+ Knee Strength Knee Manual Muscle Testing Left Flexion (S2) 4+ Good+ Extension (L3) 4+ Good+ Right Flexion (S2) 5 Normal Extension (L3) 5 Normal PT-OP-Q Treatments Start: 10/07/23 16:30 Freq: Status: Active Protocol: Document 10/08/23 09:46 [facility] (Rec: 10/09/23 16:39 [facility] [id number]) Gait Training Gait Activity assistive device training Device Used FWW, SPC Level of Assistance SBA, cues Treatment Focus correct fit and safe use Self-Care/Home Management Treatment Education Patient Education Home Exercise Program,Pain Management Other Education pt to ask physician about compression stocking for after surgery, stressed importance of edema management PT-OP-T Assessment and Plan Start: 10/07/23 16:30 Freq: Status: Active Protocol: Document 10/08/23 09:46 [facility] (Rec: 10/09/23 16:39 [facility] [id number]) Physical Therapy Assessment Goals Three Impairment balance dysfunction Short Term Goal (STG) Instruct patient in balance exercises for preparation for TKA rehab and to decrease fall risk STG Duration 11/13/23 Cleaner And Trimmer Goal (LTG) Patient to be independent and compliant with balance exercise and demonstrate good understanding of safe progression as tolerated LTG Duration 12/08/23 Two Impairment gait dysfunction Impairment antalgic gait, lacking knowledge of use of assistive devices Cleaner And Trimmer Goal (LTG) Patient to demonstrate safety and independnece with use of assistive devices for post-op rehab LTG Duration 12/08/23 One Impairment left LE weakness Short Term Goal (STG) Instruct patient in HEP for purposes of left LE strengthening in preparation for left TKA STG Duration 11/08/23 Cleaner And Trimmer Goal (LTG) Patient to be independent and compliant with HEP. LTG Duration 12/08/23 Assessment Summary Assessment Patient presents to PT with function limiting pain left knee, plan for TKA in December. Wants to prepare for surgery as much as possible with exercise and learn what to expect after surgery for best rehab results. Evaluation reveals limitation in ROM left knee, antalgic gait, weakness left knee and left hip extensors. He has not previously walked with an assistive device. Patient educated in use of front wheeled walker and cane for post-op use with instruction on correct fit and advised to obtain this. Initial instruction in HEP today. Requested patient ask surgeon about any recommendation for thigh high compression stocking for post-op edema control. Feel patient will benefit from physical therapy for individualized therapeiutic exercise for ROM, strengthening, and balance and further patient education prior to his TKA. POC was discussed and patient was in agreement. Physical Therapy Plan Frequency and Duration Frequency of Treatment 4 visits Duration of treatment (weeks) 8 Plan of Care Start Date 10/08/23 Plan of Care End Date 12/08/23 Therapeutic Interventions Therapeutic Interventions Balance Training,Gait Training ,Home Exercise Program,Manual Therapy,Neuromuscular Re- education,Patient/Caregiver Education,Self-Care/Home Management,Soft Tissue Mobilization,Taping, Therapeutic Activities, Therapeutic Exercises Modalities Cold Pack/Ice Massage,Electric Stimulation,Hot Packs Next Visit Focus/Plan Next Note Type Treatment Note Next Visit Plan Review HEP, progress ther ex including leg press single and double leg and hamstring curl single and double leg. Balance training.
--- NOTE | 2023-10-10 11:17 | PT.OTN ---
Current Diagnoses Pain in left knee (10/10/23) Physical Therapy Treatment Note PT-OP-A Visit Information Start: 10/07/23 16:30 Freq: Status: Active Protocol: Document 10/10/23 10:30 [facility] (Rec: 10/10/23 11:17 [facility] [id number]) Out-Patient Physical Therapy Visit Information Visit Information Visit Type Treatment Note Visit Start Time 10:30 Visit Number 2 Precautions Precautions patient takes blood thinners PT-OP-B Current Condition Start: 10/07/23 16:30 Freq: Status: Active Protocol: Document 10/10/23 10:30 [facility] (Rec: 10/10/23 11:17 [facility] [id number]) Current Condition History of Current Condition Onset Date 10+ year Current Complaints left knee pain History of Current Condition TKA left scheduled for December 23, 2023. Dr. Cueto in [place]. Has had some instruction, wants to go into surgery strong. Needs to know his limits. Currently limited to walking less than 1 mile. Goes to gym daily, tolerates elliptical 10- 18 min intervals, does a series of weights 30 min-45 min workouts. Used to hike 5-7 miles per day, sometimes very long hikes. Wants to be able to hike and move around on the boat with reasonable control. Doesnt do much flexibility training. Prior Treatments and Tests arthritis left knee PT-OP-C Subjective Start: 10/07/23 16:30 Freq: Status: Active Protocol: Document 10/10/23 10:30 [facility] (Rec: 10/10/23 11:17 [facility] [id number]) OP-PT Subjective Patient Comments Patient Comments Patient reports a little more sore from walking without a limp PT-OP-G Mobility & Gait Start: 10/07/23 16:30 Freq: Status: Active Protocol: Document 10/08/23 09:46 [facility] (Rec: 10/09/23 16:39 [facility] [id number]) OP Gait Assessment Gait Gait Assistance Required: Independent Assistive Devices Assistive Device None Gait Deviations General Gait Pattern Antalgic Comments Gait Comments genu varus left LE PT-OP-H Neuro Start: 10/07/23 16:30 Freq: Status: Active Protocol: Document 10/08/23 09:46 [facility] (Rec: 10/09/23 16:39 [facility] [id number]) Sensation Evaluation Gross Sensation Gross Sensation WNL PT-OP-J Posture/Palpation/Skin Start: 10/07/23 16:30 Freq: Status: Active Protocol: Document 10/08/23 09:46 [facility] (Rec: 10/09/23 16:39 [facility] [id number]) Posture Evaluation Position stand Hip Posture (L) Externally Rotated,(R) Externally Rotated Knee Posture (L) Genu Varus Palpation Assessment Location left knee Palpation Findings Tenderness Palpation Details knee joint line PT-OP-K Range of Motion Start: 10/07/23 16:30 Freq: Status: Active Protocol: Document 10/08/23 09:46 [facility] (Rec: 10/09/23 16:39 [facility] [id number]) Hip Goniometric Range of Motion Hip Left Straight Leg Raise 55 right Straight Leg Raise 65 Hip ROM Limitations Hip ROM Limitations Soft Tissue Tightness Knee Goniometric Range of Motion Knee Left Flexion Active (degrees) 118 Extension Active (degrees) 5 Right Knee ROM WFL Yes Knee ROM Limitations Knee ROM Limitations Bony Restriction PT-OP-M Strength Start: 10/07/23 16:30 Freq: Status: Active Protocol: Document 10/08/23 09:46 [facility] (Rec: 10/09/23 16:39 [facility] [id number]) Hip Strength Hip Manual Muscle Testing Left Flexion (L2) 4+ Good+ Extension (S1) 4- Good- Abduction 4+ Good+ Adduction 4+ Good+ External Rotation 4+ Good+ Internal Rotation 4+ Good+ Right Flexion (L2) 4+ Good+ Extension (S1) 4+ Good+ Abduction 4+ Good+ Adduction 4+ Good+ External Rotation 4+ Good+ Internal Rotation 4+ Good+ Knee Strength Knee Manual Muscle Testing Left Flexion (S2) 4+ Good+ Extension (L3) 4+ Good+ Right Flexion (S2) 5 Normal Extension (L3) 5 Normal PT-OP-Q Treatments Start: 10/07/23 16:30 Freq: Status: Active Protocol: Document 10/10/23 10:30 [facility] (Rec: 10/10/23 11:17 [facility] [id number]) Cardio Equipment Bicycle (Upright) Duration (Minutes) 5 Resistance 7 Seat Position 7 Gym Equipment Cable Column (Body Solid) hamstring curl Resistance 30 sapphire, 20 unil Reps/Time 10x Shuttle Recovery Unilateral Squats Resistance 50 right, 37 left Reps/Time 10x2 Bilateral Squats Resistance 62 Reps/Time 10x 2 Therapeutic Exercises Supine Exercises single leg bridge Reps/Minutes 10x SLR Reps/Minutes 10x Comments cues for fully extended knee SAQ Reps/Minutes 10x Comments cues for doing both at same time and comparing. Standing Exercises mini squats Reps/Minutes 10x knee ext Equipment Used L2 TB Reps/Minutes 10x tandem stand Equipment Used wall bar Reps/Minutes 2 min SLS Equipment Used wall bar Reps/Minutes 2 min Gait Training Gait Activity level Device Used mirror Surface firm Distance/Duration 3 min Treatment Focus dec limp PT-OP-T Assessment and Plan Start: 10/07/23 16:30 Freq: Status: Active Protocol: Document 10/10/23 10:30 [facility] (Rec: 10/10/23 11:17 [facility] [id number]) Physical Therapy Assessment Goals Three Impairment balance dysfunction Short Term Goal (STG) Instruct patient in balance exercises for preparation for TKA rehab and to decrease fall risk STG Duration 11/13/23 Special Education Superintendent Goal (LTG) Patient to be independent and compliant with balance exercise and demonstrate good understanding of safe progression as tolerated LTG Duration 12/08/23 Two Impairment gait dysfunction Impairment antalgic gait, lacking knowledge of use of assistive devices Residential Goal (LTG) Patient to demonstrate safety and independnece with use of assistive devices for post-op rehab LTG Duration 12/08/23 One Impairment left LE weakness Short Term Goal (STG) Instruct patient in HEP for purposes of left LE strengthening in preparation for left TKA STG Duration 11/08/23 Special Education Superintendent Goal (LTG) Patient to be independent and compliant with HEP. LTG Duration 12/08/23 Progress Towards Goals Progress Towards Goals Progressing Toward Goals Assessment Summary Assessment Progressed ther ex with good tolerance, weaker left quads vs right evident on leg press. Added standing knee extension with theraband. Cont post-op education, ed to do ex sapphire for comparison. Patient demonstrating good understanding Physical Therapy Plan Frequency and Duration Frequency of Treatment 4 visits Duration of treatment (weeks) 8 Plan of Care Start Date 10/08/23 Plan of Care End Date 12/08/23 Therapeutic Interventions Therapeutic Interventions Balance Training,Gait Training ,Home Exercise Program,Manual Therapy,Neuromuscular Re- education,Patient/Caregiver Education,Self-Care/Home Management,Soft Tissue Mobilization,Taping, Therapeutic Activities, Therapeutic Exercises Modalities Cold Pack/Ice Massage,Electric Stimulation,Hot Packs Next Visit Focus/Plan Next Visit Plan Complete pre-op education, exercise progression for strengthening and gait as tolerated.
--- NOTE | 2023-10-17 16:28 | PT.OTN ---
Current Diagnoses Pain in left knee (10/17/23) Physical Therapy Treatment Note PT-OP-A Visit Information Start: 10/07/23 16:30 Freq: Status: Active Protocol: Document 10/17/23 10:29 [facility] (Rec: 10/17/23 11:17 [facility] [id number]) Out-Patient Physical Therapy Visit Information Visit Information Visit Type Treatment Note Visit Start Time 10:30 Visit Stop Time 11:15 Visit Number 3 Evaluation Information Evaluation Date 10/08/23 Precautions Precautions patient takes blood thinners PT-OP-B Current Condition Start: 10/07/23 16:30 Freq: Status: Active Protocol: Document 10/17/23 10:29 [facility] (Rec: 10/17/23 11:17 [facility] [id number]) Current Condition History of Current Condition Onset Date 10+ year Current Complaints left knee pain History of Current Condition TKA left scheduled for December 23, 2023. Dr. Cueto in [place]. Has had some instruction, wants to go into surgery strong. Needs to know his limits. Currently limited to walking less than 1 mile. Goes to gym daily, tolerates elliptical 10- 18 min intervals, does a series of weights 30 min-45 min workouts. Used to hike 5-7 miles per day, sometimes very long hikes. Wants to be able to hike and move around on the boat with reasonable control. Doesnt do much flexibility training. Prior Treatments and Tests arthritis left knee PT-OP-C Subjective Start: 10/07/23 16:30 Freq: Status: Active Protocol: Document 10/17/23 10:29 [facility] (Rec: 10/17/23 11:17 [facility] [id number]) OP-PT Subjective Patient Comments Patient Comments Patient reports things going pretty well, amazed at how weak his left leg is, doing single leg leg press and hamstring curl. Wants to go over stretches PT-OP-G Mobility & Gait Start: 10/07/23 16:30 Freq: Status: Active Protocol: Document 10/08/23 09:46 [facility] (Rec: 10/09/23 16:39 [facility] [id number]) OP Gait Assessment Gait Gait Assistance Required: Independent Assistive Devices Assistive Device None Gait Deviations General Gait Pattern Antalgic Comments Gait Comments genu varus left LE PT-OP-H Neuro Start: 10/07/23 16:30 Freq: Status: Active Protocol: Document 10/08/23 09:46 [facility] (Rec: 10/09/23 16:39 [facility] [id number]) Sensation Evaluation Gross Sensation Gross Sensation WNL PT-OP-J Posture/Palpation/Skin Start: 10/07/23 16:30 Freq: Status: Active Protocol: Document 10/08/23 09:46 [facility] (Rec: 10/09/23 16:39 [facility] [id number]) Posture Evaluation Position stand Hip Posture (L) Externally Rotated,(R) Externally Rotated Knee Posture (L) Genu Varus Palpation Assessment Location left knee Palpation Findings Tenderness Palpation Details knee joint line PT-OP-K Range of Motion Start: 10/07/23 16:30 Freq: Status: Active Protocol: Document 10/08/23 09:46 [facility] (Rec: 10/09/23 16:39 [facility] [id number]) Hip Goniometric Range of Motion Hip Left Straight Leg Raise 55 right Straight Leg Raise 65 Hip ROM Limitations Hip ROM Limitations Soft Tissue Tightness Knee Goniometric Range of Motion Knee Left Flexion Active (degrees) 118 Extension Active (degrees) 5 Right Knee ROM WFL Yes Knee ROM Limitations Knee ROM Limitations Bony Restriction PT-OP-M Strength Start: 10/07/23 16:30 Freq: Status: Active Protocol: Document 10/08/23 09:46 [facility] (Rec: 10/09/23 16:39 [facility] [id number]) Hip Strength Hip Manual Muscle Testing Left Flexion (L2) 4+ Good+ Extension (S1) 4- Good- Abduction 4+ Good+ Adduction 4+ Good+ External Rotation 4+ Good+ Internal Rotation 4+ Good+ Right Flexion (L2) 4+ Good+ Extension (S1) 4+ Good+ Abduction 4+ Good+ Adduction 4+ Good+ External Rotation 4+ Good+ Internal Rotation 4+ Good+ Knee Strength Knee Manual Muscle Testing Left Flexion (S2) 4+ Good+ Extension (L3) 4+ Good+ Right Flexion (S2) 5 Normal Extension (L3) 5 Normal PT-OP-Q Treatments Start: 10/07/23 16:30 Freq: Status: Active Protocol: Document 10/17/23 10:29 [facility] (Rec: 10/17/23 11:17 [facility] [id number]) Cardio Equipment Bicycle (Upright) Duration (Minutes) 5 Resistance 7 Seat Position 7 Therapeutic Exercises Supine Exercises HS Supine Exercise Name stretch Resistance strap Reps/Minutes 2x30 IT band Supine Exercise Name stretch Equipment Used STRAP Reps/Minutes 2X hamstring Supine Exercise Name sitting option instead Sitting Exercises hamstring stretch Reps/Minutes 2X Comments cues for hip hinge Standing Exercises quad stretch Standing Exercise Name review Equipment Used chair Reps/Minutes 2x30 calf stretch Standing Exercise Name after heel raises Equipment Used stair Reps/Minutes 2x30 Comments added to HEP Gait Training Gait Activity assistive device training Device Used SPC, trekking poles Level of Assistance SBA, cues Treatment Focus correct fit and safe use, sequencing Comments patient preferred trekking poles and looked more comfortable PT-OP-T Assessment and Plan Start: 10/07/23 16:30 Freq: Status: Active Protocol: Document 10/17/23 10:29 [facility] (Rec: 10/17/23 11:17 [facility] [id number]) Physical Therapy Assessment Goals Three Impairment balance dysfunction Short Term Goal (STG) Instruct patient in balance exercises for preparation for TKA rehab and to decrease fall risk STG Duration goal met Diagnostic Sales Specialist Goal (LTG) Patient to be independent and compliant with balance exercise and demonstrate good understanding of safe progression as tolerated LTG Duration goal met Two Impairment gait dysfunction Impairment antalgic gait, lacking knowledge of use of assistive devices Prison Goal (LTG) Patient to demonstrate safety and independnece with use of assistive devices for post-op rehab LTG Duration goal met One Impairment left LE weakness Short Term Goal (STG) Instruct patient in HEP for purposes of left LE strengthening in preparation for left TKA STG Duration goal met [facility] Goal (LTG) Patient to be independent and compliant with HEP. LTG Duration goal met Progress Towards Goals Progress Towards Goals Goals Met Assessment Summary Assessment Patient demonstrating good understanding of use of assistive devices, performance of HEP, and knowledge of needed equipment for post-op TKA. Plans to discuss compression stocking (thigh high as recommended) with physician but today reports he rememembers he has one from prior issue. Physical Therapy Plan Frequency and Duration Frequency of Treatment 4 visits Duration of treatment (weeks) 8 Plan of Care Start Date 10/08/23 Plan of Care End Date 12/08/23 Therapeutic Interventions Therapeutic Interventions Balance Training,Gait Training ,Home Exercise Program,Manual Therapy,Neuromuscular Re- education,Patient/Caregiver Education,Self-Care/Home Management,Soft Tissue Mobilization,Taping, Therapeutic Activities, Therapeutic Exercises Modalities Cold Pack/Ice Massage,Electric Stimulation,Hot Packs Discharge Physical Therapy Discharge Reasons Goals Met
== END 2023-11-20 09:30 ==
LOC: PHYS 10:30
PROVIDERS: Family Provider Internal Medicine; PCP Internal Medicine; Referring Provider Internal Medicine; Visit Provider Internal Medicine
DX: M25.562 Pain in left knee (principal)
CPT/HCPCS: 97110; 97116; 97161; 97535

== ENCOUNTER → 2023-11-25 09:09 | Outpatient (CLI) | payer MEDICARE, OTHER, SELFPAY | PROVIDERS: Family Provider Internal Medicine; PCP Internal Medicine; Visit Provider Nurse Practitioner Family | DX: T14.8XXA Other injury of unspecified body region, initial encounter (principal) | CPT/HCPCS: 87070; 87205 ==

== ENCOUNTER → 2023-12-31 14:41 | Outpatient (CLI) | payer MEDICARE, OTHER, SELFPAY ==
[2023-12-31 15:51] LABS: BUN Creatinine Ratio 31.2 (6-22); Blood Urea Nitrogen 24 mg/dL (9-20); Calcium 8.9 mg/dL (8.4-10.2); Carbon Dioxide 31 mmol/L (22-32); Chloride 107 mmol/L (98-107); Estimated Glomerular Filt Rate > 60 mL/min (>60); Glucose 104 mg/dL (80-110); HEMOLYSIS < 15 (0-50); Potassium 4.3 mmol/L (3.4-5.1); Sodium 140 mmol/L (137-145)
== END ==
LOC: LAB 14:43
PROVIDERS: Family Provider Internal Medicine; PCP Internal Medicine; Referring Provider Nurse Practitioner; Visit Provider Nurse Practitioner
DX: Z51.81 Encounter for therapeutic drug level monitoring (principal); Z79.899 Other long term (current) drug therapy
CPT/HCPCS: 36415; 80048

== ENCOUNTER 2024-02-05 11:15 | Outpatient (RCR) | payer MEDICARE, OTHER, SELFPAY ==
--- NOTE | 2023-12-30 12:32 | PT.OIE ---
Current Diagnoses Presence of left artificial knee joint (12/30/23) Past Medical History (Last Reviewed 09/26/23 @ 14:11 by Tejas Jain MD) BPH w urinary obs/LUTS BPPV (benign paroxysmal positional vertigo) Chronic anticoagulation Excessive daytime sleepiness Glaucoma Gross hematuria Insomnia Mixed hyperlipidemia Obstructive sleep apnea of adult (~2013) Paroxysmal atrial fibrillation Primary osteoarthritis involving multiple joints Prostate nodule Snoring Ulnar neuropathy of left upper extremity Past Surgical History (Last Reviewed 09/26/23 @ 14:11 by Tejas Jain MD) History of back surgery Visit Care Team Role Provider Type Alfredo Ochoa MD Family Provider Physician Primary Care Provider Specialty: Internal Medicine Address: [address] [place] [address], [facility] Email: [email or web address] Giovanny Cueto MD Attending Provider Non-Staff Referring Provider Specialty: Orthopedic Surgery Address: [address] [place] [address], [facility], [place], [address] Email: Physical Therapy Initial Evaluation PT-OP-A Visit Information Start: 12/26/23 17:33 Freq: Status: Active Protocol: Document 12/30/23 11:17 [facility] (Rec: 12/30/23 12:32 [facility] [id number]) Out-Patient Physical Therapy Visit Information Visit Information Visit Type Initial Evaluation Visit Note 07/24 Visit Start Time 11:21 Visit Stop Time 12:10 Visit Number 1 Number of FINANCIAL SPECIALIST Visits 0 PT-OP-B Current Condition Start: 12/26/23 17:33 Freq: Status: Active Protocol: Document 12/30/23 11:17 [facility] (Rec: 12/30/23 12:32 [facility] [id number]) Current Condition History of Current Condition Onset Date L TKA Current Complaints 12/22 History of Current Condition Pt reports L knee pain for a while and it took about 6 months to get it done in [place]. Pt reports today feels a little lightheaded and nauseas. Thinks he overdid it yesterday. He was walking a bit yesterday w/o walker and was walking around more w/ others home. He has been compliant w/HEP. No stairs at home. Pt has a step in shower w/handle and has a stool in there for now and indep besides helping wash back . Pt likes to hike, go to gym (ellipitical), and sail. Has been unable to hike recently d /t to knee pain. Did PT pre-op also. has hx of L5-S1 fusion years ago with only current mild pain. Treatment Goals Patient/Caregiver Goals Get back to hiking, sailing, gym and full activities. PT-OP-F Manual Assessment Start: 12/26/23 17:33 Freq: Status: Active Protocol: Document 12/30/23 11:17 [facility] (Rec: 12/30/23 12:32 [facility] [id number]) Manual Assessments Soft Tissue Assessment Soft Tissue Mobility Assessment bruising med adductor, lat calf, post HS, med quad, ITB PT-OP-G Mobility & Gait Start: 12/26/23 17:33 Freq: Status: Active Protocol: Document 12/30/23 11:17 [facility] (Rec: 12/30/23 12:32 [facility] [id number]) OP Mobility Evaluation Transfers Sit to Stand w/LLE fwd and use of FWW Bed to Chair Transfers indep w/bed mobility OP Gait Assessment Comments Gait Comments Amb w/FWW w/dec stance time on LLE PT-OP-K Range of Motion Start: 12/26/23 17:33 Freq: Status: Active Protocol: Document 12/30/23 11:17 [facility] (Rec: 12/30/23 12:32 [facility] [id number]) Knee Goniometric Range of Motion Knee Right Flexion Active (degrees) 131 Extension Active (degrees) 0 Left Flexion Active (degrees) 95 Extension Active (degrees) 4 Comments pain PT-OP-M Strength Start: 12/26/23 17:33 Freq: Status: Active Protocol: Document 12/30/23 11:17 [facility] (Rec: 12/30/23 12:32 [facility] [id number]) Hip Strength Hip Manual Muscle Testing Right Flexion (L2) 5 Normal External Rotation 4 Good Internal Rotation 5 Normal Left Flexion (L2) 3+ Fair+ Abduction 3 Fair External Rotation 3+ Fair+ Internal Rotation 3 Fair Knee Strength Knee Manual Muscle Testing Right Flexion (S2) 5 Normal Extension (L3) 5 Normal Left Flexion (S2) 3+ Fair+ Extension (L3) 3+ Fair+ Ankle/Foot Strength Ankle and Foot Manual Muscle Testing Right Dorsiflexion (L4) 5 Normal Plantarflexion (S1) 5 Normal Left Dorsiflexion (L4) 4+ Good+ Plantarflexion (S1) 4+ Good+ Comments PF tested seated PT-OP-Q Treatments Start: 12/26/23 17:33 Freq: Status: Active Protocol: Document 12/30/23 11:17 [facility] (Rec: 12/30/23 12:32 [facility] [id number]) Therapeutic Exercises Supine Exercises SLR Supine Exercise Name quad set first Side left Reps/Minutes 10 SAQ Side left Equipment Used rolled pillow Reps/Minutes 5secx6 ext Supine Exercise Name passive knee ext Side left Reps/Minutes 1 min quad set Side left Equipment Used towel Reps/Minutes 10 sec x10 heel slides Supine Exercise Name w/gait belt Side left Reps/Minutes [id number] Sitting Exercises flex Sitting Exercise Name w/scoot fwd Side left Reps/Minutes 10sec x3 Standing Exercises TKE Side left Reps/Minutes 5 Gait Training Gait Activity SPC Distance/Duration 8 min Comments edu on set up of cane for height and work on use inRUE w /sequencing w/LLE and equal step lengths Self-Care/Home Management Treatment Education Other Education 7 min: edu on importance fo elevation and cont wearing Benitez hose for swelling of lower limb. Edu could ask re: wearing thigh high stocking to help w/swelling further Activities Self-Care/Home Management Activities BP: 148/88 PT-OP-T Assessment and Plan Start: 12/26/23 17:33 Freq: Status: Active Protocol: Document 12/30/23 11:17 [facility] (Rec: 12/30/23 12:32 [facility] [id number]) Physical Therapy Assessment Rehab Potential Rehabilitation Potential Excellent Evaluation Complexity Number of Personal Factors/Comorbidities 1-2 Number of Body Systems Impaired 4 or More Clinical Presentation at Evaluation Evolving Impairments Impairments Activity Tolerance,Balance, Functional Activities, Functional Mobility,Gait,Pain, ROM,Soft Tissue Mobility, Strength,Transfers Goals gait Short Term Goal (STG) Pt will be able to amb w/o AD w/good mechanics. STG Duration 01/31 Correction Goal (LTG) Pt will report return to small hikes and walks on both uneven and even surfaces w/o pain greater than 2/10 LTG Duration 03/09 strength Short Term Goal (STG) Pt will be indep w/HEP STG Duration 01/21 Floatman Goal (LTG) Pt will score at least 4+/5 on LLE MMT to show improved strength and stability in order to return to full recreational activities. LTG Duration 03/09 ROM Short Term Goal (STG) Pt will have 0-110 deg ROM STG Duration 01/21 Floatman Goal (LTG) Pt will have 0-125 deg flex and be able to do stairs reciprocally w/o rail. LTG Duration 03/09 Two Impairment balance Short Term Goal (STG) Pt will be able to do SLS B for at least 5 sec STG Duration 01/26 Correction Goal (LTG) Pt will be able to do SLS B for at least 15 sec LTG Duration 03/09 Assessment Summary Assessment Pt presents 1 week s/p L TKA w /overall good pain control w/ continued use of pain meds, but pt demonstrating good activity level and compliance w/HEP. He has good ROM and quad activation w/pain noted, but as expected 1 wk s/p surgery. He is very receptive to education and adjustment of exercises and did well w/ performance of exercsies in session. He would benefit from skilled PT to work on ROM, strength, balance and gait to return to his typical active lifestyle including: hiking, sailing and gym work. Physical Therapy Plan Frequency and Duration Frequency of Treatment 1-2x/wk Duration of treatment (weeks) 10 Plan of Care Start Date 12/30/23 Plan of Care End Date 03/09/24 Therapeutic Interventions Therapeutic Interventions Balance Training,Gait Training ,Home Exercise Program,Joint Mobilizations,Manual Therapy, Neuromuscular Re-education, Patient/Caregiver Education, Self-Care/Home Management,Soft Tissue Mobilization,Taping, Therapeutic Activities, Therapeutic Exercises Modalities Cold Pack/Ice Massage,Electric Stimulation,Hot Packs, Ultrasound Next Visit Focus/Plan Next Note Type Treatment Note Next Visit Plan recumbent stepper, leg press, TKE standing w/band, review gait w/cane, supine tball knee flex
--- NOTE | 2023-12-30 12:32 | PT.OPPOC ---
Physical, Occupational & Speech Therapy At [facility] Current Diagnoses Presence of left artificial knee joint (12/30/23) Visit Care Team Role Provider Type Alfredo Ochoa MD Family Provider Physician Primary Care Provider Specialty: Internal Medicine Address: [address] [place] [address], [id number] Email: [email or web address] Giovanny Cueto MD Attending Provider Non-Staff Referring Provider Specialty: Orthopedic Surgery Address: [address] [place] [address], [address], [place], [address] Email: Plan Of Care PT-OP-T Assessment and Plan Start: 12/26/23 17:33 Freq: Status: Active Protocol: Document 12/30/23 11:17 [facility] (Rec: 12/30/23 12:32 [facility] [id number]) Physical Therapy Assessment Rehab Potential Rehabilitation Potential Excellent Evaluation Complexity Number of Personal Factors/Comorbidities 1-2 Number of Body Systems Impaired 4 or More Clinical Presentation at Evaluation Evolving Impairments Impairments Activity Tolerance,Balance, Functional Activities, Functional Mobility,Gait,Pain, ROM,Soft Tissue Mobility, Strength,Transfers Goals gait Short Term Goal (STG) Pt will be able to amb w/o AD w/good mechanics. STG Duration 01/31 [facility] Goal (LTG) Pt will report return to small hikes and walks on both uneven and even surfaces w/o pain greater than 2/10 LTG Duration 03/09 strength Short Term Goal (STG) Pt will be indep w/HEP STG Duration 01/21 Business Objects Architect Goal (LTG) Pt will score at least 4+/5 on LLE MMT to show improved strength and stability in order to return to full recreational activities. LTG Duration 03/09 ROM Short Term Goal (STG) Pt will have 0-110 deg ROM STG Duration 01/21 [facility] Goal (LTG) Pt will have 0-125 deg flex and be able to do stairs reciprocally w/o rail. LTG Duration 03/09 Two Impairment balance Short Term Goal (STG) Pt will be able to do SLS B for at least 5 sec STG Duration 01/26 [facility] Goal (LTG) Pt will be able to do SLS B for at least 15 sec LTG Duration 03/09 Assessment Summary Assessment Pt presents 1 week s/p L TKA w /overall good pain control w/ continued use of pain meds, but pt demonstrating good activity level and compliance w/HEP. He has good ROM and quad activation w/pain noted, but as expected 1 wk s/p surgery. He is very receptive to education and adjustment of exercises and did well w/ performance of exercsies in session. He would benefit from skilled PT to work on ROM, strength, balance and gait to return to his typical active lifestyle including: hiking, sailing and gym work. Physical Therapy Plan Frequency and Duration Frequency of Treatment 1-2x/wk Duration of treatment (weeks) 10 Plan of Care Start Date 12/30/23 Plan of Care End Date 03/09/24 Therapeutic Interventions Therapeutic Interventions Balance Training,Gait Training ,Home Exercise Program,Joint Mobilizations,Manual Therapy, Neuromuscular Re-education, Patient/Caregiver Education, Self-Care/Home Management,Soft Tissue Mobilization,Taping, Therapeutic Activities, Therapeutic Exercises Modalities Cold Pack/Ice Massage,Electric Stimulation,Hot Packs, Ultrasound Next Visit Focus/Plan Next Note Type Treatment Note Next Visit Plan recumbent stepper, leg press, TKE standing w/band, review gait w/cane, supine tball knee flex Plan of Care Dates Plan of Care Start Date 12/30/23 Plan of Care End Date 03/09/24 Electronically Signed by: Evon Alvarez, PT 12/30/23 5741 If you are in agreement with this Plan of Care, please return a signed and dated copy. I have reviewed this Plan of Care and certify that the skilled therapy services above are required to meet the patient?s needs. Physician Signature Date Printed Name and Credentials Clinical Instructor Signature Printed Name and Credentials
--- NOTE | 2024-01-02 12:20 | PT.OTN ---
Current Diagnoses Presence of left artificial knee joint (01/02/24) Physical Therapy Treatment Note PT-OP-A Visit Information Start: 12/26/23 17:33 Freq: Status: Active Protocol: Document 01/02/24 11:27 [facility] (Rec: 01/02/24 12:20 [facility] [id number]) Out-Patient Physical Therapy Visit Information Visit Information Visit Type Treatment Note Visit Start Time 11:22 Visit Stop Time 12:05 Visit Number 2 Number of SNACK STEWARD Visits 0 PT-OP-B Current Condition Start: 12/26/23 17:33 Freq: Status: Active Protocol: Document 12/30/23 11:17 [facility] (Rec: 12/30/23 12:32 [facility] [id number]) Current Condition History of Current Condition Onset Date L TKA Current Complaints 12/22 History of Current Condition Pt reports L knee pain for a while and it took about 6 months to get it done in [place]. Pt reports today feels a little lightheaded and nauseas. Thinks he overdid it yesterday. He was walking a bit yesterday w/o walker and was walking around more w/ others home. He has been compliant w/HEP. No stairs at home. Pt has a step in shower w/handle and has a stool in there for now and indep besides helping wash back . Pt likes to hike, go to gym (ellipitical), and sail. Has been unable to hike recently d /t to knee pain. Did PT pre-op also. has hx of L5-S1 fusion years ago with only current mild pain. Treatment Goals Patient/Caregiver Goals Get back to hiking, sailing, gym and full activities. PT-OP-C Subjective Start: 12/26/23 17:33 Freq: Status: Active Protocol: Document 01/02/24 11:27 [facility] (Rec: 01/02/24 12:20 [facility] [id number]) OP-PT Subjective Patient Comments Patient Comments Pt reports he is using about 1 /2 tab for pain. He did take 500mg tylenol this AM PT-OP-F Manual Assessment Start: 12/26/23 17:33 Freq: Status: Active Protocol: Document 12/30/23 11:17 [facility] (Rec: 12/30/23 12:32 [facility] [id number]) Manual Assessments Soft Tissue Assessment Soft Tissue Mobility Assessment bruising med adductor, lat calf, post HS, med quad, ITB PT-OP-G Mobility & Gait Start: 12/26/23 17:33 Freq: Status: Active Protocol: Document 12/30/23 11:17 [facility] (Rec: 12/30/23 12:32 [facility] [id number]) OP Mobility Evaluation Transfers Sit to Stand w/LLE fwd and use of FWW Bed to Chair Transfers indep w/bed mobility OP Gait Assessment Comments Gait Comments Amb w/FWW w/dec stance time on LLE PT-OP-K Range of Motion Start: 12/26/23 17:33 Freq: Status: Active Protocol: Document 12/30/23 11:17 [facility] (Rec: 12/30/23 12:32 [facility] [id number]) Knee Goniometric Range of Motion Knee Right Flexion Active (degrees) 131 Extension Active (degrees) 0 Left Flexion Active (degrees) 95 Extension Active (degrees) 4 Comments pain PT-OP-M Strength Start: 12/26/23 17:33 Freq: Status: Active Protocol: Document 12/30/23 11:17 [facility] (Rec: 12/30/23 12:32 [facility] [id number]) Hip Strength Hip Manual Muscle Testing Right Flexion (L2) 5 Normal External Rotation 4 Good Internal Rotation 5 Normal Left Flexion (L2) 3+ Fair+ Abduction 3 Fair External Rotation 3+ Fair+ Internal Rotation 3 Fair Knee Strength Knee Manual Muscle Testing Right Flexion (S2) 5 Normal Extension (L3) 5 Normal Left Flexion (S2) 3+ Fair+ Extension (L3) 3+ Fair+ Ankle/Foot Strength Ankle and Foot Manual Muscle Testing Right Dorsiflexion (L4) 5 Normal Plantarflexion (S1) 5 Normal Left Dorsiflexion (L4) 4+ Good+ Plantarflexion (S1) 4+ Good+ Comments PF tested seated PT-OP-Q Treatments Start: 12/26/23 17:33 Freq: Status: Active Protocol: Document 01/02/24 11:27 [facility] (Rec: 01/02/24 12:20 [facility] [id number]) Cardio Equipment Recumbent Elliptical (Biodex) Duration (Minutes) 6 Resistance 1 Seat Position 8-7 Gym Equipment Shuttle Recovery Unilateral Squats Details L Resistance 25# (teal) Shuttle Recovery Platform Stable Reps/Time 15 Bilateral Squats Resistance 50 (2 navy) Shuttle Recovery Platform Stable Reps/Time 20 Therapeutic Exercises Supine Exercises flex Supine Exercise Name w/tball under feet Side bilateral Equipment Used orange tball Reps/Minutes 15 Standing Exercises heel raises Standing Exercise Name inc wt onto LLE Side bilateral Reps/Minutes 20 TKE Side left Equipment Used L2 band behind thigh Reps/Minutes 20 Gait Training Gait Activity SPC Comments work on use inRUE w/sequencing w/LLE and equal step lengths Manual Therapy Treatment Soft Tissue Mobilization post Body Location HS and calf Mobilization Type Rolling Intensity/Depth Superficial Body Position Supine PT-OP-T Assessment and Plan Start: 12/26/23 17:33 Freq: Status: Active Protocol: Document 01/02/24 11:27 [facility] (Rec: 01/02/24 12:20 [facility] [id number]) Physical Therapy Assessment Goals gait Short Term Goal (STG) Pt will be able to amb w/o AD w/good mechanics. STG Duration 01/31 Custodial Goal (LTG) Pt will report return to small hikes and walks on both uneven and even surfaces w/o pain greater than 2/10 LTG Duration 03/09 strength Short Term Goal (STG) Pt will be indep w/HEP STG Duration 01/21 Lube Man Goal (LTG) Pt will score at least 4+/5 on LLE MMT to show improved strength and stability in order to return to full recreational activities. LTG Duration 03/09 ROM Short Term Goal (STG) Pt will have 0-110 deg ROM STG Duration 01/21 Custodial Goal (LTG) Pt will have 0-125 deg flex and be able to do stairs reciprocally w/o rail. LTG Duration 03/09 Two Impairment balance Short Term Goal (STG) Pt will be able to do SLS B for at least 5 sec STG Duration 01/26 Custodial Goal (LTG) Pt will be able to do SLS B for at least 15 sec LTG Duration 03/09 Assessment Summary Assessment Pt had 4-101 ROM after exercises today and shows good understanding w/cane amb. Did require some cueing for step length. Swelling is improved but still inc in L lower leg and foot. He cont to improve w /ROM and is encouraged to cont exercsies at home and do small walks frequently in day. Physical Therapy Plan Frequency and Duration Frequency of Treatment 1-2x/wk Duration of treatment (weeks) 10 Plan of Care Start Date 12/30/23 Plan of Care End Date 03/09/24 Next Visit Focus/Plan Next Note Type Treatment Note Next Visit Plan recumbent stepper, leg press, TKE standing w/band, review gait w/cane as needed, supine tball knee flex, LAQ
--- NOTE | 2024-01-06 12:13 | PT.OTN ---
Current Diagnoses Presence of left artificial knee joint (01/06/24) Physical Therapy Treatment Note PT-OP-A Visit Information Start: 12/26/23 17:33 Freq: Status: Active Protocol: Document 01/06/24 11:18 AB (Rec: 01/06/24 12:13 AB [id number]) Out-Patient Physical Therapy Visit Information Visit Information Visit Type Treatment Note Visit Start Time 11:18 Visit Stop Time 12:03 Visit Number 3 Number of UNDERWRITING CLERK Visits 1 PT-OP-B Current Condition Start: 12/26/23 17:33 Freq: Status: Active Protocol: Document 12/30/23 11:17 [facility] (Rec: 12/30/23 12:32 [facility] [id number]) Current Condition History of Current Condition Onset Date L TKA Current Complaints 12/22 History of Current Condition Pt reports L knee pain for a while and it took about 6 months to get it done in [place]. Pt reports today feels a little lightheaded and nauseas. Thinks he overdid it yesterday. He was walking a bit yesterday w/o walker and was walking around more w/ others home. He has been compliant w/HEP. No stairs at home. Pt has a step in shower w/handle and has a stool in there for now and indep besides helping wash back . Pt likes to hike, go to gym (ellipitical), and sail. Has been unable to hike recently d /t to knee pain. Did PT pre-op also. has hx of L5-S1 fusion years ago with only current mild pain. Treatment Goals Patient/Caregiver Goals Get back to hiking, sailing, gym and full activities. PT-OP-C Subjective Start: 12/26/23 17:33 Freq: Status: Active Protocol: Document 01/06/24 11:18 AB (Rec: 01/06/24 12:13 AB [id number]) OP-PT Subjective Patient Comments Patient Comments Patient requests ed for set up on bike. Patient reports he can get in and out of the care without lifting his leg, and took the raised toilet seat off. Patient reports only using the FWW for shopping. Lacking 8 deg extension to 100 deg flexion AROM left knee. Single leg stance without UE use 1 to less than one second X 3, reports no increased pain . PT-OP-F Manual Assessment Start: 12/26/23 17:33 Freq: Status: Active Protocol: Document 12/30/23 11:17 [facility] (Rec: 12/30/23 12:32 [facility] [id number]) Manual Assessments Soft Tissue Assessment Soft Tissue Mobility Assessment bruising med adductor, lat calf, post HS, med quad, ITB PT-OP-G Mobility & Gait Start: 12/26/23 17:33 Freq: Status: Active Protocol: Document 12/30/23 11:17 [facility] (Rec: 12/30/23 12:32 [facility] [id number]) OP Mobility Evaluation Transfers Sit to Stand w/LLE fwd and use of FWW Bed to Chair Transfers indep w/bed mobility OP Gait Assessment Comments Gait Comments Amb w/FWW w/dec stance time on LLE PT-OP-K Range of Motion Start: 12/26/23 17:33 Freq: Status: Active Protocol: Document 12/30/23 11:17 [facility] (Rec: 12/30/23 12:32 [facility] [id number]) Knee Goniometric Range of Motion Knee Right Flexion Active (degrees) 131 Extension Active (degrees) 0 Left Flexion Active (degrees) 95 Extension Active (degrees) 4 Comments pain PT-OP-M Strength Start: 12/26/23 17:33 Freq: Status: Active Protocol: Document 12/30/23 11:17 [facility] (Rec: 12/30/23 12:32 [facility] [id number]) Hip Strength Hip Manual Muscle Testing Right Flexion (L2) 5 Normal External Rotation 4 Good Internal Rotation 5 Normal Left Flexion (L2) 3+ Fair+ Abduction 3 Fair External Rotation 3+ Fair+ Internal Rotation 3 Fair Knee Strength Knee Manual Muscle Testing Right Flexion (S2) 5 Normal Extension (L3) 5 Normal Left Flexion (S2) 3+ Fair+ Extension (L3) 3+ Fair+ Ankle/Foot Strength Ankle and Foot Manual Muscle Testing Right Dorsiflexion (L4) 5 Normal Plantarflexion (S1) 5 Normal Left Dorsiflexion (L4) 4+ Good+ Plantarflexion (S1) 4+ Good+ Comments PF tested seated PT-OP-Q Treatments Start: 12/26/23 17:33 Freq: Status: Active Protocol: Document 01/06/24 11:18 AB (Rec: 01/06/24 12:13 AB [id number]) Cardio Equipment Recumbent Elliptical (Biodex) Duration (Minutes) 6 Resistance 1-2 Seat Position 10, 11 Therapeutic Exercises Supine Exercises flex Supine Exercise Name lower LE's and feet on ball Side bilateral Equipment Used green ball Comments 2 min SLR Supine Exercise Name quad set first Side left Reps/Minutes x15 Comments post calf stretch and manual heel slides Supine Exercise Name AROM Side left Reps/Minutes X10 Sitting Exercises long arc quad Side left Reps/Minutes X10 Comments verbal cues to fully extend Gait Training Gait Activity SPC Description walking stick Distance/Duration 10 feet Comments Verbal cues for knee straight on heel strike. Manual Therapy Treatment Soft Tissue Mobilization left knee Body Location for swelling Mobilization Type Other Intensity/Depth Moderate Body Position Hooklying Comments present for ed upward strokes avoiding healing incision post Body Location HS Mobilization Type Cross-Friction,Rolling Intensity/Depth Moderate Body Position Hooklying Comments adriana for pain, present for ed to perform STM prior to exercise PT-OP-T Assessment and Plan Start: 12/26/23 17:33 Freq: Status: Active Protocol: Document 01/06/24 11:18 AB (Rec: 01/06/24 12:13 AB [id number]) Physical Therapy Assessment Goals gait Short Term Goal (STG) Pt will be able to amb w/o AD w/good mechanics. STG Duration 01/31 Jail Goal (LTG) Pt will report return to small hikes and walks on both uneven and even surfaces w/o pain greater than 2/10 LTG Duration 03/09 strength Short Term Goal (STG) Pt will be indep w/HEP STG Duration 01/21 Jail Goal (LTG) Pt will score at least 4+/5 on LLE MMT to show improved strength and stability in order to return to full recreational activities. LTG Duration 03/09 ROM Short Term Goal (STG) Pt will have 0-110 deg ROM STG Duration 01/21 State Trooper Goal (LTG) Pt will have 0-125 deg flex and be able to do stairs reciprocally w/o rail. LTG Duration 03/09 Two Impairment balance Short Term Goal (STG) Pt will be able to do SLS B for at least 5 sec STG Duration 01/26 State Trooper Goal (LTG) Pt will be able to do SLS B for at least 15 sec LTG Duration 03/09 Assessment Summary Assessment lacking 6 deg extension to 109 deg flexion left knee post manual therapy. Patient rates pain left knee end of session. Physical Therapy Plan Frequency and Duration Frequency of Treatment 1-2x/wk Duration of treatment (weeks) 10 Plan of Care Start Date 12/30/23 Plan of Care End Date 03/09/24 Next Visit Focus/Plan Next Note Type Treatment Note Next Visit Plan recumbent stepper, leg press, TKE standing w/band, review gait w/cane as needed, supine tball knee flex, tapping to facilitate quad if needed, Balance
--- NOTE | 2024-01-09 12:05 | PT.OTN ---
Current Diagnoses Presence of left artificial knee joint (01/09/24) Physical Therapy Treatment Note PT-OP-A Visit Information Start: 12/26/23 17:33 Freq: Status: Active Protocol: Document 01/09/24 11:21 [facility] (Rec: 01/09/24 12:05 [facility] [id number]) Out-Patient Physical Therapy Visit Information Visit Information Visit Type Treatment Note Visit Start Time 11:20 Visit Stop Time 12:00 Visit Number 4 Number of BUSINESS RESILIENCY MANAGER Visits 0 PT-OP-B Current Condition Start: 12/26/23 17:33 Freq: Status: Active Protocol: Document 12/30/23 11:17 [facility] (Rec: 12/30/23 12:32 [facility] [id number]) Current Condition History of Current Condition Onset Date L TKA Current Complaints 12/22 History of Current Condition Pt reports L knee pain for a while and it took about 6 months to get it done in [place]. Pt reports today feels a little lightheaded and nauseas. Thinks he overdid it yesterday. He was walking a bit yesterday w/o walker and was walking around more w/ others home. He has been compliant w/HEP. No stairs at home. Pt has a step in shower w/handle and has a stool in there for now and indep besides helping wash back . Pt likes to hike, go to gym (ellipitical), and sail. Has been unable to hike recently d /t to knee pain. Did PT pre-op also. has hx of L5-S1 fusion years ago with only current mild pain. Treatment Goals Patient/Caregiver Goals Get back to hiking, sailing, gym and full activities. PT-OP-C Subjective Start: 12/26/23 17:33 Freq: Status: Active Protocol: Document 01/09/24 11:21 [facility] (Rec: 01/09/24 12:05 [facility] [id number]) OP-PT Subjective Patient Comments Patient Comments Pt felt really good yesterday so did execises mult times ( tends to do them 5-10x a day) and does nustep at gym PT-OP-F Manual Assessment Start: 12/26/23 17:33 Freq: Status: Active Protocol: Document 12/30/23 11:17 [facility] (Rec: 12/30/23 12:32 [facility] [id number]) Manual Assessments Soft Tissue Assessment Soft Tissue Mobility Assessment bruising med adductor, lat calf, post HS, med quad, ITB PT-OP-G Mobility & Gait Start: 12/26/23 17:33 Freq: Status: Active Protocol: Document 12/30/23 11:17 [facility] (Rec: 12/30/23 12:32 [facility] [id number]) OP Mobility Evaluation Transfers Sit to Stand w/LLE fwd and use of FWW Bed to Chair Transfers indep w/bed mobility OP Gait Assessment Comments Gait Comments Amb w/FWW w/dec stance time on LLE PT-OP-K Range of Motion Start: 12/26/23 17:33 Freq: Status: Active Protocol: Document 12/30/23 11:17 [facility] (Rec: 12/30/23 12:32 [facility] [id number]) Knee Goniometric Range of Motion Knee Right Flexion Active (degrees) 131 Extension Active (degrees) 0 Left Flexion Active (degrees) 95 Extension Active (degrees) 4 Comments pain PT-OP-M Strength Start: 12/26/23 17:33 Freq: Status: Active Protocol: Document 12/30/23 11:17 [facility] (Rec: 12/30/23 12:32 [facility] [id number]) Hip Strength Hip Manual Muscle Testing Right Flexion (L2) 5 Normal External Rotation 4 Good Internal Rotation 5 Normal Left Flexion (L2) 3+ Fair+ Abduction 3 Fair External Rotation 3+ Fair+ Internal Rotation 3 Fair Knee Strength Knee Manual Muscle Testing Right Flexion (S2) 5 Normal Extension (L3) 5 Normal Left Flexion (S2) 3+ Fair+ Extension (L3) 3+ Fair+ Ankle/Foot Strength Ankle and Foot Manual Muscle Testing Right Dorsiflexion (L4) 5 Normal Plantarflexion (S1) 5 Normal Left Dorsiflexion (L4) 4+ Good+ Plantarflexion (S1) 4+ Good+ Comments PF tested seated PT-OP-Q Treatments Start: 12/26/23 17:33 Freq: Status: Active Protocol: Document 01/09/24 11:21 [facility] (Rec: 01/09/24 12:05 [facility] [id number]) Cardio Equipment Recumbent Stepper (Sci-Fit) Duration (Minutes) 5 Seat Position 10-9 Gym Equipment Shuttle Recovery Unilateral Squats Details L Resistance 25# (teal) Shuttle Recovery Platform Stable Reps/Time 15 Bilateral Squats Resistance 50 (2 navy) Shuttle Recovery Platform Stable Reps/Time 15 Therapeutic Exercises Supine Exercises stretch Supine Exercise Name modified raina Side left Reps/Minutes 30 sec flex Supine Exercise Name lower LE's and feet on ball Side bilateral Equipment Used green ball Comments 2 min Sitting Exercises long arc quad Side left Reps/Minutes X10 Comments verbal cues to fully extend Standing Exercises TKE Side left Equipment Used L2 band behind thigh Reps/Minutes 20 Manual Therapy Treatment Soft Tissue Mobilization post Body Location HS, calf Mobilization Type Rolling Intensity/Depth Moderate Body Position Hooklying Joint Mobilizations tibiofemoral Joint L Direction AP femur Grade II patellofemoral Direction sup (focus), inf, med PT-OP-T Assessment and Plan Start: 12/26/23 17:33 Freq: Status: Active Protocol: Document 01/09/24 11:21 [facility] (Rec: 01/09/24 12:05 [facility] [id number]) Physical Therapy Assessment Goals gait Short Term Goal (STG) Pt will be able to amb w/o AD w/good mechanics. STG Duration 01/31 [facility] Goal (LTG) Pt will report return to small hikes and walks on both uneven and even surfaces w/o pain greater than 2/10 LTG Duration 03/09 strength Short Term Goal (STG) Pt will be indep w/HEP STG Duration 01/21 [facility] Goal (LTG) Pt will score at least 4+/5 on LLE MMT to show improved strength and stability in order to return to full recreational activities. LTG Duration 03/09 ROM Short Term Goal (STG) Pt will have 0-110 deg ROM STG Duration 01/21 Respiratory Practitioner Goal (LTG) Pt will have 0-125 deg flex and be able to do stairs reciprocally w/o rail. LTG Duration 03/09 Two Impairment balance Short Term Goal (STG) Pt will be able to do SLS B for at least 5 sec STG Duration 01/26 Respiratory Practitioner Goal (LTG) Pt will be able to do SLS B for at least 15 sec LTG Duration 03/09 Assessment Summary Assessment After exercise: 4-101 deg ROM, after manual: 2-109. Pt encouraged to do exercises no more than 5x/ day and okay to do gentle ROM through day but not to push it w/reps and stretch 10x a day. Pt improving w/terminal quad engagement Physical Therapy Plan Frequency and Duration Frequency of Treatment 1-2x/wk Duration of treatment (weeks) 10 Plan of Care Start Date 12/30/23 Plan of Care End Date 03/09/24 Next Visit Focus/Plan Next Note Type Treatment Note Next Visit Plan attempt recumbant bike, cont to work terminal ext and flex ROM
--- NOTE | 2024-01-14 12:39 | PT.OTN ---
Current Diagnoses Presence of left artificial knee joint (01/14/24) Physical Therapy Treatment Note PT-OP-A Visit Information Start: 12/26/23 17:33 Freq: Status: Active Protocol: Document 01/14/24 11:19 AB (Rec: 01/14/24 12:39 AB [id number]) Out-Patient Physical Therapy Visit Information Visit Information Visit Type Treatment Note Visit Note Late start due to patient had to run out to lock car. Visit Start Time 11:22 Visit Stop Time 12:00 Visit Number 5 Number of BEAUTY CULTURIST APPRENTICE Visits 1 PT-OP-B Current Condition Start: 12/26/23 17:33 Freq: Status: Active Protocol: Document 12/30/23 11:17 [facility] (Rec: 12/30/23 12:32 [facility] [id number]) Current Condition History of Current Condition Onset Date L TKA Current Complaints 12/22 History of Current Condition Pt reports L knee pain for a while and it took about 6 months to get it done in [place]. Pt reports today feels a little lightheaded and nauseas. Thinks he overdid it yesterday. He was walking a bit yesterday w/o walker and was walking around more w/ others home. He has been compliant w/HEP. No stairs at home. Pt has a step in shower w/handle and has a stool in there for now and indep besides helping wash back . Pt likes to hike, go to gym (ellipitical), and sail. Has been unable to hike recently d /t to knee pain. Did PT pre-op also. has hx of L5-S1 fusion years ago with only current mild pain. Treatment Goals Patient/Caregiver Goals Get back to hiking, sailing, gym and full activities. PT-OP-C Subjective Start: 12/26/23 17:33 Freq: Status: Active Protocol: Document 01/14/24 11:19 AB (Rec: 01/14/24 12:39 AB [id number]) OP-PT Subjective Patient Comments Patient Comments Patient reports he is doing better, mostly carrying the SPC. AROM left knee lacking 6 deg ext to 109 deg flexion PT-OP-F Manual Assessment Start: 12/26/23 17:33 Freq: Status: Active Protocol: Document 12/30/23 11:17 [facility] (Rec: 12/30/23 12:32 [facility] [id number]) Manual Assessments Soft Tissue Assessment Soft Tissue Mobility Assessment bruising med adductor, lat calf, post HS, med quad, ITB PT-OP-G Mobility & Gait Start: 12/26/23 17:33 Freq: Status: Active Protocol: Document 12/30/23 11:17 [facility] (Rec: 12/30/23 12:32 [facility] [id number]) OP Mobility Evaluation Transfers Sit to Stand w/LLE fwd and use of FWW Bed to Chair Transfers indep w/bed mobility OP Gait Assessment Comments Gait Comments Amb w/FWW w/dec stance time on LLE PT-OP-K Range of Motion Start: 12/26/23 17:33 Freq: Status: Active Protocol: Document 12/30/23 11:17 [facility] (Rec: 12/30/23 12:32 [facility] [id number]) Knee Goniometric Range of Motion Knee Right Flexion Active (degrees) 131 Extension Active (degrees) 0 Left Flexion Active (degrees) 95 Extension Active (degrees) 4 Comments pain PT-OP-M Strength Start: 12/26/23 17:33 Freq: Status: Active Protocol: Document 12/30/23 11:17 [facility] (Rec: 12/30/23 12:32 [facility] [id number]) Hip Strength Hip Manual Muscle Testing Right Flexion (L2) 5 Normal External Rotation 4 Good Internal Rotation 5 Normal Left Flexion (L2) 3+ Fair+ Abduction 3 Fair External Rotation 3+ Fair+ Internal Rotation 3 Fair Knee Strength Knee Manual Muscle Testing Right Flexion (S2) 5 Normal Extension (L3) 5 Normal Left Flexion (S2) 3+ Fair+ Extension (L3) 3+ Fair+ Ankle/Foot Strength Ankle and Foot Manual Muscle Testing Right Dorsiflexion (L4) 5 Normal Plantarflexion (S1) 5 Normal Left Dorsiflexion (L4) 4+ Good+ Plantarflexion (S1) 4+ Good+ Comments PF tested seated PT-OP-Q Treatments Start: 12/26/23 17:33 Freq: Status: Active Protocol: Document 01/14/24 11:19 AB (Rec: 01/14/24 12:39 AB [id number]) Cardio Equipment Recumbent Bicycle Duration (Minutes) 5 Resistance none added Seat Position 6 Therapeutic Exercises Supine Exercises hip and knee extension Supine Exercise Name from hooklying Resistance level 4 band Reps/Minutes X10 hamstring stretch Side left Reps/Minutes one minute X 3 stretch Supine Exercise Name modified raina Side left Reps/Minutes AROM knee flexion X 30 SLR Supine Exercise Name quad set first Side left Reps/Minutes x15 Comments post calf stretch and manual heel slides Supine Exercise Name AROM Side left Reps/Minutes X10 Standing Exercises TKE Side left Equipment Used L4 band Reps/Minutes X15 Gait Training Gait Activity stairs Distance/Duration X4 steps with 2 rails X 2 6 inch steps then one 4 inch step Treatment Focus stair assessment Comments Monitored for pain, Verbal cues for reciprocal pattern asecnding X 4 then step to pattern favoring left LE ascending and descending due to reports of pain left LE ascending on 6 inch step and ascending 4 inch step fwd step back left LE with less pain Manual Therapy Treatment Soft Tissue Mobilization left knee Body Location quad and hamstring, and for swelling Mobilization Type Other Intensity/Depth Moderate Body Position Hooklying Comments prior to stretch Joint Mobilizations tibiofemoral Joint L Direction PA femur Grade III patellofemoral Direction sup, inf CW CCW PT-OP-T Assessment and Plan Start: 12/26/23 17:33 Freq: Status: Active Protocol: Document 01/14/24 11:19 AB (Rec: 01/14/24 12:39 AB [id number]) Physical Therapy Assessment Goals gait Short Term Goal (STG) Pt will be able to amb w/o AD w/good mechanics. STG Duration 01/31 Coil Cleaner Goal (LTG) Pt will report return to small hikes and walks on both uneven and even surfaces w/o pain greater than 2/10 LTG Duration 03/09 strength Short Term Goal (STG) Pt will be indep w/HEP STG Duration 01/21 Prison Goal (LTG) Pt will score at least 4+/5 on LLE MMT to show improved strength and stability in order to return to full recreational activities. LTG Duration 03/09 ROM Short Term Goal (STG) Pt will have 0-110 deg ROM STG Duration 01/21 Coil Cleaner Goal (LTG) Pt will have 0-125 deg flex and be able to do stairs reciprocally w/o rail. LTG Duration 03/09 Two Impairment balance Short Term Goal (STG) Pt will be able to do SLS B for at least 5 sec STG Duration 01/26 Prison Goal (LTG) Pt will be able to do SLS B for at least 15 sec LTG Duration 03/09 Assessment Summary Assessment lacking 3 deg extension to 114 deg flexion AROM left knee post manual therapy and exercise, rating pain 0 to 1/ 10 left knee end of session. Physical Therapy Plan Frequency and Duration Frequency of Treatment 1-2x/wk Duration of treatment (weeks) 10 Plan of Care Start Date 12/30/23 Plan of Care End Date 03/09/24 Next Visit Focus/Plan Next Note Type Treatment Note Next Visit Plan attempt recumbant bike, cont to work terminal ext and flex ROM
--- NOTE | 2024-01-21 13:02 | PT.OTN ---
Current Diagnoses Presence of left artificial knee joint (01/21/24) Physical Therapy Treatment Note PT-OP-A Visit Information Start: 12/26/23 17:33 Freq: Status: Active Protocol: Document 01/14/24 11:19 AB (Rec: 01/14/24 12:39 AB [id number]) Out-Patient Physical Therapy Visit Information Visit Information Visit Type Treatment Note Visit Note Late start due to patient had to run out to lock car. Visit Start Time 11:22 Visit Stop Time 12:00 Visit Number 5 Number of NURSE COORDINATOR Visits 1 PT-OP-B Current Condition Start: 12/26/23 17:33 Freq: Status: Active Protocol: Document 12/30/23 11:17 [facility] (Rec: 12/30/23 12:32 [facility] [id number]) Current Condition History of Current Condition Onset Date L TKA Current Complaints 12/22 History of Current Condition Pt reports L knee pain for a while and it took about 6 months to get it done in [place]. Pt reports today feels a little lightheaded and nauseas. Thinks he overdid it yesterday. He was walking a bit yesterday w/o walker and was walking around more w/ others home. He has been compliant w/HEP. No stairs at home. Pt has a step in shower w/handle and has a stool in there for now and indep besides helping wash back . Pt likes to hike, go to gym (ellipitical), and sail. Has been unable to hike recently d /t to knee pain. Did PT pre-op also. has hx of L5-S1 fusion years ago with only current mild pain. Treatment Goals Patient/Caregiver Goals Get back to hiking, sailing, gym and full activities. PT-OP-C Subjective Start: 12/26/23 17:33 Freq: Status: Active Protocol: Document 01/14/24 11:19 AB (Rec: 01/14/24 12:39 AB [id number]) OP-PT Subjective Patient Comments Patient Comments Patient reports he is doing better, mostly carrying the SPC. AROM left knee lacking 6 deg ext to 109 deg flexion PT-OP-F Manual Assessment Start: 12/26/23 17:33 Freq: Status: Active Protocol: Document 12/30/23 11:17 [facility] (Rec: 12/30/23 12:32 [facility] [id number]) Manual Assessments Soft Tissue Assessment Soft Tissue Mobility Assessment bruising med adductor, lat calf, post HS, med quad, ITB PT-OP-G Mobility & Gait Start: 12/26/23 17:33 Freq: Status: Active Protocol: Document 12/30/23 11:17 [facility] (Rec: 12/30/23 12:32 [facility] [id number]) OP Mobility Evaluation Transfers Sit to Stand w/LLE fwd and use of FWW Bed to Chair Transfers indep w/bed mobility OP Gait Assessment Comments Gait Comments Amb w/FWW w/dec stance time on LLE PT-OP-K Range of Motion Start: 12/26/23 17:33 Freq: Status: Active Protocol: Document 12/30/23 11:17 [facility] (Rec: 12/30/23 12:32 [facility] [id number]) Knee Goniometric Range of Motion Knee Right Flexion Active (degrees) 131 Extension Active (degrees) 0 Left Flexion Active (degrees) 95 Extension Active (degrees) 4 Comments pain PT-OP-M Strength Start: 12/26/23 17:33 Freq: Status: Active Protocol: Document 12/30/23 11:17 [facility] (Rec: 12/30/23 12:32 [facility] [id number]) Hip Strength Hip Manual Muscle Testing Right Flexion (L2) 5 Normal External Rotation 4 Good Internal Rotation 5 Normal Left Flexion (L2) 3+ Fair+ Abduction 3 Fair External Rotation 3+ Fair+ Internal Rotation 3 Fair Knee Strength Knee Manual Muscle Testing Right Flexion (S2) 5 Normal Extension (L3) 5 Normal Left Flexion (S2) 3+ Fair+ Extension (L3) 3+ Fair+ Ankle/Foot Strength Ankle and Foot Manual Muscle Testing Right Dorsiflexion (L4) 5 Normal Plantarflexion (S1) 5 Normal Left Dorsiflexion (L4) 4+ Good+ Plantarflexion (S1) 4+ Good+ Comments PF tested seated PT-OP-Q Treatments Start: 12/26/23 17:33 Freq: Status: Active Protocol: Document 01/14/24 11:19 AB (Rec: 01/14/24 12:39 AB [id number]) Cardio Equipment Recumbent Bicycle Duration (Minutes) 5 Resistance none added Seat Position 6 Therapeutic Exercises Supine Exercises hip and knee extension Supine Exercise Name from hooklying Resistance level 4 band Reps/Minutes X10 hamstring stretch Side left Reps/Minutes one minute X 3 stretch Supine Exercise Name modified raina Side left Reps/Minutes AROM knee flexion X 30 SLR Supine Exercise Name quad set first Side left Reps/Minutes x15 Comments post calf stretch and manual heel slides Supine Exercise Name AROM Side left Reps/Minutes X10 Standing Exercises TKE Side left Equipment Used L4 band Reps/Minutes X15 Gait Training Gait Activity stairs Distance/Duration X4 steps with 2 rails X 2 6 inch steps then one 4 inch step Treatment Focus stair assessment Comments Monitored for pain, Verbal cues for reciprocal pattern asecnding X 4 then step to pattern favoring left LE ascending and descending due to reports of pain left LE ascending on 6 inch step and ascending 4 inch step fwd step back left LE with less pain Manual Therapy Treatment Soft Tissue Mobilization left knee Body Location quad and hamstring, and for swelling Mobilization Type Other Intensity/Depth Moderate Body Position Hooklying Comments prior to stretch Joint Mobilizations tibiofemoral Joint L Direction PA femur Grade III patellofemoral Direction sup, inf CW CCW PT-OP-T Assessment and Plan Start: 12/26/23 17:33 Freq: Status: Active Protocol: Document 01/14/24 11:19 AB (Rec: 01/14/24 12:39 AB [id number]) Physical Therapy Assessment Goals gait Short Term Goal (STG) Pt will be able to amb w/o AD w/good mechanics. STG Duration 01/31 Ripsaw Grader Goal (LTG) Pt will report return to small hikes and walks on both uneven and even surfaces w/o pain greater than 2/10 LTG Duration 03/09 strength Short Term Goal (STG) Pt will be indep w/HEP STG Duration 01/21 Snf Goal (LTG) Pt will score at least 4+/5 on LLE MMT to show improved strength and stability in order to return to full recreational activities. LTG Duration 03/09 ROM Short Term Goal (STG) Pt will have 0-110 deg ROM STG Duration 01/21 Ripsaw Grader Goal (LTG) Pt will have 0-125 deg flex and be able to do stairs reciprocally w/o rail. LTG Duration 03/09 Two Impairment balance Short Term Goal (STG) Pt will be able to do SLS B for at least 5 sec STG Duration 01/26 Snf Goal (LTG) Pt will be able to do SLS B for at least 15 sec LTG Duration 03/09 Assessment Summary Assessment lacking 3 deg extension to 114 deg flexion AROM left knee post manual therapy and exercise, rating pain 0 to 1/ 10 left knee end of session. Physical Therapy Plan Frequency and Duration Frequency of Treatment 1-2x/wk Duration of treatment (weeks) 10 Plan of Care Start Date 12/30/23 Plan of Care End Date 03/09/24 Next Visit Focus/Plan Next Note Type Treatment Note Next Visit Plan attempt recumbant bike, cont to work terminal ext and flex ROM
--- NOTE | 2024-01-23 17:36 | PT.OTN ---
Current Diagnoses Presence of left artificial knee joint (01/23/24) Physical Therapy Treatment Note PT-OP-A Visit Information Start: 12/26/23 17:33 Freq: Status: Active Protocol: Document 01/23/24 13:02 [facility] (Rec: 01/23/24 17:36 [facility] [id number]) Out-Patient Physical Therapy Visit Information Visit Information Visit Type Progress Note Visit Note 07/24 Visit Start Time 13:02 Visit Stop Time 13:45 Visit Number 7 Number of TRIM MECHANIC Visits 0 PT-OP-B Current Condition Start: 12/26/23 17:33 Freq: Status: Active Protocol: Document 12/30/23 11:17 [facility] (Rec: 12/30/23 12:32 [facility] [id number]) Current Condition History of Current Condition Onset Date L TKA Current Complaints 12/22 History of Current Condition Pt reports L knee pain for a while and it took about 6 months to get it done in [place]. Pt reports today feels a little lightheaded and nauseas. Thinks he overdid it yesterday. He was walking a bit yesterday w/o walker and was walking around more w/ others home. He has been compliant w/HEP. No stairs at home. Pt has a step in shower w/handle and has a stool in there for now and indep besides helping wash back . Pt likes to hike, go to gym (ellipitical), and sail. Has been unable to hike recently d /t to knee pain. Did PT pre-op also. has hx of L5-S1 fusion years ago with only current mild pain. Treatment Goals Patient/Caregiver Goals Get back to hiking, sailing, gym and full activities. PT-OP-C Subjective Start: 12/26/23 17:33 Freq: Status: Active Protocol: Document 01/23/24 13:02 [facility] (Rec: 01/23/24 17:36 [facility] [id number]) OP-PT Subjective Patient Comments Patient Comments Pt reports he feels like he is at a plateau and wants to figure out how to get out of it. He has been really pushing it to get ROM. He does find if he gets under the warm water, he can flex more. He was walking quickly down the driveway to get to [facility] and had a sharp pain in ant knee that was really significant and now its achey. otherwise pain is achey tightness. PT-OP-F Manual Assessment Start: 12/26/23 17:33 Freq: Status: Active Protocol: Document 12/30/23 11:17 [facility] (Rec: 12/30/23 12:32 [facility] [id number]) Manual Assessments Soft Tissue Assessment Soft Tissue Mobility Assessment bruising med adductor, lat calf, post HS, med quad, ITB PT-OP-G Mobility & Gait Start: 12/26/23 17:33 Freq: Status: Active Protocol: Document 12/30/23 11:17 [facility] (Rec: 12/30/23 12:32 [facility] [id number]) OP Mobility Evaluation Transfers Sit to Stand w/LLE fwd and use of FWW Bed to Chair Transfers indep w/bed mobility OP Gait Assessment Comments Gait Comments Amb w/FWW w/dec stance time on LLE PT-OP-K Range of Motion Start: 12/26/23 17:33 Freq: Status: Active Protocol: Document 01/23/24 13:02 [facility] (Rec: 01/23/24 17:36 [facility] [id number]) Knee Goniometric Range of Motion Knee Left Flexion Active (degrees) 111 Extension Active (degrees) 3 Comments pain PT-OP-M Strength Start: 12/26/23 17:33 Freq: Status: Active Protocol: Document 01/23/24 13:02 [facility] (Rec: 01/23/24 17:36 [facility] [id number]) Hip Strength Hip Manual Muscle Testing Right Flexion (L2) 5 Normal Abduction 4- Good- External Rotation 5 Normal Internal Rotation 5 Normal Left Flexion (L2) 4 Good Abduction 4- Good- External Rotation 4 Good Internal Rotation 4- Good- Knee Strength Knee Manual Muscle Testing Right Flexion (S2) 5 Normal Extension (L3) 5 Normal Left Flexion (S2) 4- Good- Extension (L3) 4 Good Ankle/Foot Strength Ankle and Foot Manual Muscle Testing Right Dorsiflexion (L4) 5 Normal Plantarflexion (S1) 5 Normal Comments 20 heel raises B Left Dorsiflexion (L4) 5 Normal Plantarflexion (S1) 5 Normal Comments slightly dec heel raise range PT-OP-Q Treatments Start: 12/26/23 17:33 Freq: Status: Active Protocol: Document 01/23/24 13:02 [facility] (Rec: 01/23/24 17:36 [facility] [id number]) Cardio Equipment Recumbent Bicycle Duration (Minutes) 6 Resistance none Seat Position 6 Other back/forth Therapeutic Exercises Supine Exercises quad set Supine Exercise Name w/measurement Side left Equipment Used into PT hand Reps/Minutes 10 sec x10 Comments cues to keep LE neutral vs ER heel slides Supine Exercise Name AROM Side left Reps/Minutes 10 Comments w/measurement Sitting Exercises HS curl Sitting Exercise Name self resisted Side left Equipment Used L2 Reps/Minutes 10 Other Exercises isometrics Other Exercise Name B LE MMT Manual Therapy Treatment Consent Patient gave verbal consent for manual Yes treatment Soft Tissue Mobilization left knee Comments MFR to areas med and lat to scar w/opp hand keeping scar together-pt educatedo n self MFR Joint Mobilizations tibiofemoral Joint L Direction AP tibia FM w/c/r flex Grade III patellofemoral Direction superior w/quad set FM Comments pt educated on self mobs PT-OP-T Assessment and Plan Start: 12/26/23 17:33 Freq: Status: Active Protocol: Document 01/23/24 13:02 [facility] (Rec: 01/23/24 17:36 [facility] [id number]) Physical Therapy Assessment Goals gait Short Term Goal (STG) Pt will be able to amb w/o AD w/good mechanics. STG Duration achieved 01/22 Chcf Goal (LTG) Pt will report return to small hikes and walks on both uneven and even surfaces w/o pain greater than 2/10 LTG Duration 03/09 strength Short Term Goal (STG) Pt will be indep w/HEP STG Duration achieved advancing as able Chcf Goal (LTG) Pt will score at least 4+/5 on LLE MMT to show improved strength and stability in order to return to full recreational activities. 01/22-progressing LTG Duration 03/09 ROM Short Term Goal (STG) Pt will have 0-110 deg ROM 01/22-3-111 that improves w/ manual STG Duration 01/21 Chcf Goal (LTG) Pt will have 0-125 deg flex and be able to do stairs reciprocally w/o rail. LTG Duration 03/09 Two Impairment balance Short Term Goal (STG) Pt will be able to do SLS B for at least 5 sec STG Duration 01/26 [facility] Goal (LTG) Pt will be able to do SLS B for at least 15 sec LTG Duration 03/09 Assessment Summary Assessment Pt started 3-111 and improved to 1-115 with manual and ther ex. He is making excellent progress PT and now is 4.5 weeks post op w/good pain control and functional mobiltiy overall. Would cont to benefit from PT for strength, balance, ROM and gait. Physical Therapy Plan Next Visit Focus/Plan Next Note Type Treatment Note Next Visit Plan attempt recumbent bike, cont to work terminal ext and flex ROM progress step ups
--- NOTE | 2024-01-27 16:32 | PT.OTN ---
Current Diagnoses Presence of left artificial knee joint (01/27/24) Physical Therapy Treatment Note PT-OP-A Visit Information Start: 12/26/23 17:33 Freq: Status: Active Protocol: Document 01/27/24 12:59 AB (Rec: 01/27/24 13:48 AB [id number]) Out-Patient Physical Therapy Visit Information Visit Information Visit Type Treatment Note Visit Note 08/24 Visit Start Time 13:03 Visit Stop Time 13:46 Visit Number 8 Number of ANESTHESIOLOGY FELLOW Visits 1 PT-OP-B Current Condition Start: 12/26/23 17:33 Freq: Status: Active Protocol: Document 12/30/23 11:17 [facility] (Rec: 12/30/23 12:32 [facility] [id number]) Current Condition History of Current Condition Onset Date L TKA Current Complaints 12/22 History of Current Condition Pt reports L knee pain for a while and it took about 6 months to get it done in [place]. Pt reports today feels a little lightheaded and nauseas. Thinks he overdid it yesterday. He was walking a bit yesterday w/o walker and was walking around more w/ others home. He has been compliant w/HEP. No stairs at home. Pt has a step in shower w/handle and has a stool in there for now and indep besides helping wash back . Pt likes to hike, go to gym (ellipitical), and sail. Has been unable to hike recently d /t to knee pain. Did PT pre-op also. has hx of L5-S1 fusion years ago with only current mild pain. Treatment Goals Patient/Caregiver Goals Get back to hiking, sailing, gym and full activities. PT-OP-C Subjective Start: 12/26/23 17:33 Freq: Status: Active Protocol: Document 01/27/24 12:59 AB (Rec: 01/27/24 13:48 AB [id number]) OP-PT Subjective Patient Comments Patient Comments Patient reports using the bike in gym is helpful. Lacking 4 deg extension to 120 deg flexion. 6 inch step up with UE support, reports a little pain left LE. PT-OP-F Manual Assessment Start: 12/26/23 17:33 Freq: Status: Active Protocol: Document 12/30/23 11:17 [facility] (Rec: 12/30/23 12:32 [facility] [id number]) Manual Assessments Soft Tissue Assessment Soft Tissue Mobility Assessment bruising med adductor, lat calf, post HS, med quad, ITB PT-OP-G Mobility & Gait Start: 12/26/23 17:33 Freq: Status: Active Protocol: Document 12/30/23 11:17 [facility] (Rec: 12/30/23 12:32 [facility] [id number]) OP Mobility Evaluation Transfers Sit to Stand w/LLE fwd and use of FWW Bed to Chair Transfers indep w/bed mobility OP Gait Assessment Comments Gait Comments Amb w/FWW w/dec stance time on LLE PT-OP-K Range of Motion Start: 12/26/23 17:33 Freq: Status: Active Protocol: Document 01/23/24 13:02 [facility] (Rec: 01/23/24 17:36 [facility] [id number]) Knee Goniometric Range of Motion Knee Left Flexion Active (degrees) 111 Extension Active (degrees) 3 Comments pain PT-OP-M Strength Start: 12/26/23 17:33 Freq: Status: Active Protocol: Document 01/23/24 13:02 [facility] (Rec: 01/23/24 17:36 [facility] [id number]) Hip Strength Hip Manual Muscle Testing Right Flexion (L2) 5 Normal Abduction 4- Good- External Rotation 5 Normal Internal Rotation 5 Normal Left Flexion (L2) 4 Good Abduction 4- Good- External Rotation 4 Good Internal Rotation 4- Good- Knee Strength Knee Manual Muscle Testing Right Flexion (S2) 5 Normal Extension (L3) 5 Normal Left Flexion (S2) 4- Good- Extension (L3) 4 Good Ankle/Foot Strength Ankle and Foot Manual Muscle Testing Right Dorsiflexion (L4) 5 Normal Plantarflexion (S1) 5 Normal Comments 20 heel raises B Left Dorsiflexion (L4) 5 Normal Plantarflexion (S1) 5 Normal Comments slightly dec heel raise range PT-OP-Q Treatments Start: 12/26/23 17:33 Freq: Status: Active Protocol: Document 01/27/24 12:59 AB (Rec: 01/27/24 13:48 AB [id number]) Cardio Equipment Recumbent Bicycle Duration (Minutes) 6 Resistance none Other Seat 6 to 2 fwd back at 2 Therapeutic Exercises Supine Exercises hamstring stretch Side left Reps/Minutes one minute X 3 SLR Side left Reps/Minutes 10 Comments post manual and HS stretch heel slides Side left Reps/Minutes X10 Other Exercises step up Side left Reps/Minutes X 2 and X10 Comments with UE use Manual Therapy Treatment Soft Tissue Mobilization left knee Body Location quad and hamstring, and for swelling Mobilization Type Other Intensity/Depth Moderate Joint Mobilizations patellofemoral Direction sup, inf CW CCW PT-OP-T Assessment and Plan Start: 12/26/23 17:33 Freq: Status: Active Protocol: Document 01/27/24 12:59 AB (Rec: 01/27/24 13:48 AB [id number]) Physical Therapy Assessment Goals gait Short Term Goal (STG) Pt will be able to amb w/o AD w/good mechanics. STG Duration achieved 01/22 Fpc Goal (LTG) Pt will report return to small hikes and walks on both uneven and even surfaces w/o pain greater than 2/10 LTG Duration 03/09 strength Short Term Goal (STG) Pt will be indep w/HEP STG Duration achieved advancing as able Fpc Goal (LTG) Pt will score at least 4+/5 on LLE MMT to show improved strength and stability in order to return to full recreational activities. 01/22-progressing LTG Duration 03/09 ROM Short Term Goal (STG) Pt will have 0-110 deg ROM 01/22-3-111 that improves w/ manual STG Duration 01/21 Monitor Technician Goal (LTG) Pt will have 0-125 deg flex and be able to do stairs reciprocally w/o rail. LTG Duration 03/09 Two Impairment balance Short Term Goal (STG) Pt will be able to do SLS B for at least 5 sec STG Duration 01/26 Monitor Technician Goal (LTG) Pt will be able to do SLS B for at least 15 sec LTG Duration 03/09 Assessment Summary Assessment lacking 4 deg ext to 120 deg AROM left knee end of session, rating pain less than 1/10 left LE. 6 inch step up with 1 /10 pain with UE support. Physical Therapy Plan Frequency and Duration Frequency of Treatment 1-2x/wk Duration of treatment (weeks) 10 Plan of Care Start Date 12/30/23 Plan of Care End Date 03/09/24 Next Visit Focus/Plan Next Note Type Treatment Note Next Visit Plan attempt recumbent bike, cont to work terminal ext and flex ROM progress step ups
--- NOTE | 2024-01-29 14:42 | PT.OTN ---
Current Diagnoses Presence of left artificial knee joint (01/29/24) Physical Therapy Treatment Note PT-OP-A Visit Information Start: 12/26/23 17:33 Freq: Status: Active Protocol: Document 01/29/24 12:58 AB (Rec: 01/29/24 14:42 AB [id number]) Out-Patient Physical Therapy Visit Information Visit Information Visit Type Treatment Note Visit Note 09/21 Visit Start Time 13:03 Visit Stop Time 13:47 Visit Number 9 Number of LOAD TALLIER Visits 2 PT-OP-B Current Condition Start: 12/26/23 17:33 Freq: Status: Active Protocol: Document 12/30/23 11:17 [facility] (Rec: 12/30/23 12:32 [facility] [id number]) Current Condition History of Current Condition Onset Date L TKA Current Complaints 12/22 History of Current Condition Pt reports L knee pain for a while and it took about 6 months to get it done in [place]. Pt reports today feels a little lightheaded and nauseas. Thinks he overdid it yesterday. He was walking a bit yesterday w/o walker and was walking around more w/ others home. He has been compliant w/HEP. No stairs at home. Pt has a step in shower w/handle and has a stool in there for now and indep besides helping wash back . Pt likes to hike, go to gym (ellipitical), and sail. Has been unable to hike recently d /t to knee pain. Did PT pre-op also. has hx of L5-S1 fusion years ago with only current mild pain. Treatment Goals Patient/Caregiver Goals Get back to hiking, sailing, gym and full activities. PT-OP-C Subjective Start: 12/26/23 17:33 Freq: Status: Active Protocol: Document 01/29/24 12:58 AB (Rec: 01/29/24 14:42 AB [id number]) OP-PT Subjective Patient Comments Patient Comments Patient comments that he over did it yesterday/ did the exercises 3 X then used the bike at the gym. Patient comments he had to ice after the gym. lacking 6 deg ext to 118 deg flexion AROM left knee . Left knee swollen compared to right knee PT-OP-F Manual Assessment Start: 12/26/23 17:33 Freq: Status: Active Protocol: Document 12/30/23 11:17 [facility] (Rec: 12/30/23 12:32 [facility] [id number]) Manual Assessments Soft Tissue Assessment Soft Tissue Mobility Assessment bruising med adductor, lat calf, post HS, med quad, ITB PT-OP-G Mobility & Gait Start: 12/26/23 17:33 Freq: Status: Active Protocol: Document 12/30/23 11:17 [facility] (Rec: 12/30/23 12:32 [facility] [id number]) OP Mobility Evaluation Transfers Sit to Stand w/LLE fwd and use of FWW Bed to Chair Transfers indep w/bed mobility OP Gait Assessment Comments Gait Comments Amb w/FWW w/dec stance time on LLE PT-OP-K Range of Motion Start: 12/26/23 17:33 Freq: Status: Active Protocol: Document 01/23/24 13:02 [facility] (Rec: 01/23/24 17:36 [facility] [id number]) Knee Goniometric Range of Motion Knee Left Flexion Active (degrees) 111 Extension Active (degrees) 3 Comments pain PT-OP-M Strength Start: 12/26/23 17:33 Freq: Status: Active Protocol: Document 01/23/24 13:02 [facility] (Rec: 01/23/24 17:36 [facility] [id number]) Hip Strength Hip Manual Muscle Testing Right Flexion (L2) 5 Normal Abduction 4- Good- External Rotation 5 Normal Internal Rotation 5 Normal Left Flexion (L2) 4 Good Abduction 4- Good- External Rotation 4 Good Internal Rotation 4- Good- Knee Strength Knee Manual Muscle Testing Right Flexion (S2) 5 Normal Extension (L3) 5 Normal Left Flexion (S2) 4- Good- Extension (L3) 4 Good Ankle/Foot Strength Ankle and Foot Manual Muscle Testing Right Dorsiflexion (L4) 5 Normal Plantarflexion (S1) 5 Normal Comments 20 heel raises B Left Dorsiflexion (L4) 5 Normal Plantarflexion (S1) 5 Normal Comments slightly dec heel raise range PT-OP-Q Treatments Start: 12/26/23 17:33 Freq: Status: Active Protocol: Document 01/29/24 12:58 AB (Rec: 01/29/24 14:42 AB [id number]) Cardio Equipment Recumbent Bicycle Duration (Minutes) 6 Resistance none Other 6 to 2 fwd/back at 2 Gym Equipment Shuttle Recovery Unilateral Squats Details L Resistance 25# (teal) Shuttle Recovery Platform Stable Reps/Time 15 Bilateral Squats Resistance 50 (2 navy) Shuttle Recovery Platform Stable Reps/Time 15 Therapeutic Exercises Supine Exercises hamstring stretch Side left Reps/Minutes one minute X 3 SLR Side left Reps/Minutes 10 Comments post manual and HS stretch heel slides Supine Exercise Name 1. on ball 2 AROM Side left Reps/Minutes 1. 3 min 2 X10 Standing Exercises forward T Side left Reps/Minutes X5 Comments to chair height, close supervision Manual Therapy Treatment Soft Tissue Mobilization left knee Body Location quad and hamstring, and for swelling Mobilization Type Other Intensity/Depth Moderate Joint Mobilizations tibiofemoral Joint L Direction PA Grade III patellofemoral Direction sup, inf CW CCW PT-OP-T Assessment and Plan Start: 12/26/23 17:33 Freq: Status: Active Protocol: Document 01/29/24 12:58 AB (Rec: 01/29/24 14:42 AB [id number]) Physical Therapy Assessment Goals gait Short Term Goal (STG) Pt will be able to amb w/o AD w/good mechanics. STG Duration achieved 01/22 Wringer And Setter Goal (LTG) Pt will report return to small hikes and walks on both uneven and even surfaces w/o pain greater than 2/10 LTG Duration 03/09 strength Short Term Goal (STG) Pt will be indep w/HEP STG Duration achieved advancing as able Group Home Goal (LTG) Pt will score at least 4+/5 on LLE MMT to show improved strength and stability in order to return to full recreational activities. 01/22-progressing LTG Duration 03/09 ROM Short Term Goal (STG) Pt will have 0-110 deg ROM 01/22-3-111 that improves w/ manual STG Duration 01/21 Wringer And Setter Goal (LTG) Pt will have 0-125 deg flex and be able to do stairs reciprocally w/o rail. LTG Duration 03/09 Two Impairment balance Short Term Goal (STG) Pt will be able to do SLS B for at least 5 sec STG Duration 01/26 Wringer And Setter Goal (LTG) Pt will be able to do SLS B for at least 15 sec LTG Duration 03/09 Assessment Summary Assessment No improvement with AROM this session, likely due to swelling/overdoing it yesterday per patient. Physical Therapy Plan Frequency and Duration Frequency of Treatment 1-2x/wk Duration of treatment (weeks) 10 Plan of Care Start Date 12/30/23 Plan of Care End Date 03/09/24 Next Visit Focus/Plan Next Note Type Treatment Note Next Visit Plan attempt recumbent bike, cont to work terminal ext and flex ROM/ Review LAQ and quad sets progress step ups
--- NOTE | 2024-02-03 12:19 | PT.OTN ---
Current Diagnoses Presence of left artificial knee joint (02/03/24) Physical Therapy Treatment Note PT-OP-A Visit Information Start: 12/26/23 17:33 Freq: Status: Active Protocol: Document 02/03/24 10:49 AB (Rec: 02/03/24 12:18 AB [id number]) Out-Patient Physical Therapy Visit Information Visit Information Visit Type Treatment Note Visit Note 10/22 Visit Start Time 11:20 Visit Stop Time 12:07 Visit Number 10 Number of IT RISK ADVISOR Visits 3 PT-OP-B Current Condition Start: 12/26/23 17:33 Freq: Status: Active Protocol: Document 12/30/23 11:17 [facility] (Rec: 12/30/23 12:32 [facility] [id number]) Current Condition History of Current Condition Onset Date L TKA Current Complaints 12/22 History of Current Condition Pt reports L knee pain for a while and it took about 6 months to get it done in [place]. Pt reports today feels a little lightheaded and nauseas. Thinks he overdid it yesterday. He was walking a bit yesterday w/o walker and was walking around more w/ others home. He has been compliant w/HEP. No stairs at home. Pt has a step in shower w/handle and has a stool in there for now and indep besides helping wash back . Pt likes to hike, go to gym (ellipitical), and sail. Has been unable to hike recently d /t to knee pain. Did PT pre-op also. has hx of L5-S1 fusion years ago with only current mild pain. Treatment Goals Patient/Caregiver Goals Get back to hiking, sailing, gym and full activities. PT-OP-C Subjective Start: 12/26/23 17:33 Freq: Status: Active Protocol: Document 02/03/24 10:49 AB (Rec: 02/03/24 12:18 AB [id number]) OP-PT Subjective Patient Comments Patient Comments lacking 3 deg extension to 120 deg flexion AROM left LE. Patient reports he is getting better, going to gym riding bike 30 min with some resitance and using the leg press. PT-OP-F Manual Assessment Start: 12/26/23 17:33 Freq: Status: Active Protocol: Document 12/30/23 11:17 [facility] (Rec: 12/30/23 12:32 [facility] [id number]) Manual Assessments Soft Tissue Assessment Soft Tissue Mobility Assessment bruising med adductor, lat calf, post HS, med quad, ITB PT-OP-G Mobility & Gait Start: 12/26/23 17:33 Freq: Status: Active Protocol: Document 12/30/23 11:17 [facility] (Rec: 12/30/23 12:32 [facility] [id number]) OP Mobility Evaluation Transfers Sit to Stand w/LLE fwd and use of FWW Bed to Chair Transfers indep w/bed mobility OP Gait Assessment Comments Gait Comments Amb w/FWW w/dec stance time on LLE PT-OP-K Range of Motion Start: 12/26/23 17:33 Freq: Status: Active Protocol: Document 01/23/24 13:02 [facility] (Rec: 01/23/24 17:36 [facility] [id number]) Knee Goniometric Range of Motion Knee Left Flexion Active (degrees) 111 Extension Active (degrees) 3 Comments pain PT-OP-M Strength Start: 12/26/23 17:33 Freq: Status: Active Protocol: Document 01/23/24 13:02 [facility] (Rec: 01/23/24 17:36 [facility] [id number]) Hip Strength Hip Manual Muscle Testing Right Flexion (L2) 5 Normal Abduction 4- Good- External Rotation 5 Normal Internal Rotation 5 Normal Left Flexion (L2) 4 Good Abduction 4- Good- External Rotation 4 Good Internal Rotation 4- Good- Knee Strength Knee Manual Muscle Testing Right Flexion (S2) 5 Normal Extension (L3) 5 Normal Left Flexion (S2) 4- Good- Extension (L3) 4 Good Ankle/Foot Strength Ankle and Foot Manual Muscle Testing Right Dorsiflexion (L4) 5 Normal Plantarflexion (S1) 5 Normal Comments 20 heel raises B Left Dorsiflexion (L4) 5 Normal Plantarflexion (S1) 5 Normal Comments slightly dec heel raise range PT-OP-Q Treatments Start: 12/26/23 17:33 Freq: Status: Active Protocol: Document 02/03/24 10:49 AB (Rec: 02/03/24 12:18 AB [id number]) Therapeutic Exercises Supine Exercises hip and knee extension Supine Exercise Name from hooklying Resistance level5 band Reps/Minutes X10 x2 hamstring stretch Side left Reps/Minutes one minute X 2 Other Exercises calf stretches Other Exercise Name on step, soleus and gastroc Reps/Minutes 60 sec X 3 each step down Other Exercise Name with UE support Side left Equipment Used 6 inch step Reps/Minutes 2 X10, post training and multiple asc/desc 4 six inch steps Comments Verbal and visual cues for less quad dom pattern. isometrics Other Exercise Name glute med isometric Side bilateral Reps/Minutes one min each side Comments verbal and visual cues Manual Therapy Treatment Consent Patient gave verbal consent for manual Yes treatment Soft Tissue Mobilization left knee Body Location quad and hamstring, and for swelling Mobilization Type Other Intensity/Depth Moderate Joint Mobilizations patellofemoral Direction sup, inf CW CCW Neuro Re-Education Treatment Balance Activities SLS Details with and without visual scanning, and a few head turns Surface floor, foam pad Reps/Duration 4 min Comments Verbal cues for hands above // bar PT-OP-T Assessment and Plan Start: 12/26/23 17:33 Freq: Status: Active Protocol: Document 02/03/24 10:49 AB (Rec: 02/03/24 12:18 AB [id number]) Physical Therapy Assessment Goals gait Short Term Goal (STG) Pt will be able to amb w/o AD w/good mechanics. STG Duration achieved 01/22 Roundhouse Firer/Fireman Goal (LTG) Pt will report return to small hikes and walks on both uneven and even surfaces w/o pain greater than 2/10 LTG Duration 03/09 strength Short Term Goal (STG) Pt will be indep w/HEP STG Duration achieved advancing as able Roundhouse Firer/Fireman Goal (LTG) Pt will score at least 4+/5 on LLE MMT to show improved strength and stability in order to return to full recreational activities. 01/22-progressing LTG Duration 03/09 ROM Short Term Goal (STG) Pt will have 0-110 deg ROM 01/22-3-111 that improves w/ manual STG Duration 01/21 Assisted Goal (LTG) Pt will have 0-125 deg flex and be able to do stairs reciprocally w/o rail. LTG Duration 03/09 Two Impairment balance Short Term Goal (STG) Pt will be able to do SLS B for at least 5 sec STG Duration 01/26 Roundhouse Firer/Fireman Goal (LTG) Pt will be able to do SLS B for at least 15 sec LTG Duration 03/09 Assessment Summary Assessment Patient able to descend stairs with one rail, a less quad dominant pattern and reports of no increased pain. Physical Therapy Plan Frequency and Duration Frequency of Treatment 1-2x/wk Duration of treatment (weeks) 10 Plan of Care Start Date 12/30/23 Plan of Care End Date 03/09/24 Next Visit Focus/Plan Next Note Type Treatment Note Next Visit Plan attempt recumbent bike, cont to work terminal ext and flex ROM Focus on balance if ROM is lacking 3 or less ext and 120 deg flexion.
--- NOTE | 2024-02-05 12:30 | PT.OTN ---
Current Diagnoses Presence of left artificial knee joint (02/05/24) Physical Therapy Treatment Note PT-OP-A Visit Information Start: 12/26/23 17:33 Freq: Status: Active Protocol: Document 02/05/24 11:25 [facility] (Rec: 02/05/24 12:29 [facility] [id number]) Out-Patient Physical Therapy Visit Information Visit Information Visit Type Treatment Note Visit Note 11/21 Visit Start Time 11:22 Visit Stop Time 12:02 Visit Number 11 Number of BINDERY PRODUCTION MANAGER Visits 0 PT-OP-B Current Condition Start: 12/26/23 17:33 Freq: Status: Active Protocol: Document 12/30/23 11:17 [facility] (Rec: 12/30/23 12:32 [facility] [id number]) Current Condition History of Current Condition Onset Date L TKA Current Complaints 12/22 History of Current Condition Pt reports L knee pain for a while and it took about 6 months to get it done in [place]. Pt reports today feels a little lightheaded and nauseas. Thinks he overdid it yesterday. He was walking a bit yesterday w/o walker and was walking around more w/ others home. He has been compliant w/HEP. No stairs at home. Pt has a step in shower w/handle and has a stool in there for now and indep besides helping wash back . Pt likes to hike, go to gym (ellipitical), and sail. Has been unable to hike recently d /t to knee pain. Did PT pre-op also. has hx of L5-S1 fusion years ago with only current mild pain. Treatment Goals Patient/Caregiver Goals Get back to hiking, sailing, gym and full activities. PT-OP-C Subjective Start: 12/26/23 17:33 Freq: Status: Active Protocol: Document 02/05/24 11:25 [facility] (Rec: 02/05/24 12:29 [facility] [id number]) OP-PT Subjective Patient Comments Patient Comments pt reports he has been doign HS curls and leg extensions at gym. walking 1-2 miles on flat ground w/occasional hills . down hills are difficult w/ control PT-OP-F Manual Assessment Start: 12/26/23 17:33 Freq: Status: Active Protocol: Document 12/30/23 11:17 [facility] (Rec: 12/30/23 12:32 [facility] [id number]) Manual Assessments Soft Tissue Assessment Soft Tissue Mobility Assessment bruising med adductor, lat calf, post HS, med quad, ITB PT-OP-G Mobility & Gait Start: 12/26/23 17:33 Freq: Status: Active Protocol: Document 12/30/23 11:17 [facility] (Rec: 12/30/23 12:32 [facility] [id number]) OP Mobility Evaluation Transfers Sit to Stand w/LLE fwd and use of FWW Bed to Chair Transfers indep w/bed mobility OP Gait Assessment Comments Gait Comments Amb w/FWW w/dec stance time on LLE PT-OP-K Range of Motion Start: 12/26/23 17:33 Freq: Status: Active Protocol: Document 01/23/24 13:02 [facility] (Rec: 01/23/24 17:36 [facility] [id number]) Knee Goniometric Range of Motion Knee Left Flexion Active (degrees) 111 Extension Active (degrees) 3 Comments pain PT-OP-M Strength Start: 12/26/23 17:33 Freq: Status: Active Protocol: Document 01/23/24 13:02 [facility] (Rec: 01/23/24 17:36 [facility] [id number]) Hip Strength Hip Manual Muscle Testing Right Flexion (L2) 5 Normal Abduction 4- Good- External Rotation 5 Normal Internal Rotation 5 Normal Left Flexion (L2) 4 Good Abduction 4- Good- External Rotation 4 Good Internal Rotation 4- Good- Knee Strength Knee Manual Muscle Testing Right Flexion (S2) 5 Normal Extension (L3) 5 Normal Left Flexion (S2) 4- Good- Extension (L3) 4 Good Ankle/Foot Strength Ankle and Foot Manual Muscle Testing Right Dorsiflexion (L4) 5 Normal Plantarflexion (S1) 5 Normal Comments 20 heel raises B Left Dorsiflexion (L4) 5 Normal Plantarflexion (S1) 5 Normal Comments slightly dec heel raise range PT-OP-Q Treatments Start: 12/26/23 17:33 Freq: Status: Active Protocol: Document 02/05/24 11:25 [facility] (Rec: 02/05/24 12:29 [facility] [id number]) Cardio Equipment Elliptical Duration (Minutes) 5 Resistance 3 Other cues push off L Therapeutic Exercises Supine Exercises heel slides Side left Reps/Minutes 2x8 Other Exercises isometrics Other Exercise Name glute med isometric Side bilateral Reps/Minutes one min each side Comments verbal and visual cues Manual Therapy Treatment Consent Patient gave verbal consent for manual Yes treatment Soft Tissue Mobilization left knee Body Location around scar MFR post Body Location HS, Mobilization Type Rolling Intensity/Depth Moderate Body Position Hooklying Comments w/knee flex Joint Mobilizations patellofemoral Direction sup, inf CW CCW Neuro Re-Education Treatment Balance Activities unstable surfaces Comments walk over 2 lg blue mats w/ tpods/pads and step underneath hurdles Comments fwd recip over 6 hurdles x8 SLS Comments B trials PT-OP-T Assessment and Plan Start: 12/26/23 17:33 Freq: Status: Active Protocol: Document 02/05/24 11:25 [facility] (Rec: 02/05/24 12:29 [facility] [id number]) Physical Therapy Assessment Goals gait Short Term Goal (STG) Pt will be able to amb w/o AD w/good mechanics. STG Duration achieved 01/22 Jail Goal (LTG) Pt will report return to small hikes and walks on both uneven and even surfaces w/o pain greater than 2/10 LTG Duration 03/09 strength Short Term Goal (STG) Pt will be indep w/HEP STG Duration achieved advancing as able Reheater Helper Goal (LTG) Pt will score at least 4+/5 on LLE MMT to show improved strength and stability in order to return to full recreational activities. 01/22-progressing LTG Duration 03/09 ROM Short Term Goal (STG) Pt will have 0-110 deg ROM 01/22-3-111 that improves w/ manual STG Duration 01/21 Reheater Helper Goal (LTG) Pt will have 0-125 deg flex and be able to do stairs reciprocally w/o rail. LTG Duration 03/09 Two Impairment balance Short Term Goal (STG) Pt will be able to do SLS B for at least 5 sec STG Duration 01/26 Reheater Helper Goal (LTG) Pt will be able to do SLS B for at least 15 sec LTG Duration 03/09 Assessment Summary Assessment Pt did well with exercises today and started 3-116 and improved to 1-121 after manual . Challenged w/balance activtiies today. Physical Therapy Plan Frequency and Duration Frequency of Treatment 1-2x/wk Duration of treatment (weeks) 10 Plan of Care Start Date 12/30/23 Plan of Care End Date 03/09/24 Next Visit Focus/Plan Next Note Type Treatment Note Next Visit Plan focus on terminal ext and pt push off w/gait, look at innominate ext L and hip flexor length, gait at wall exercise, shuttle balance
--- NOTE | 2024-03-31 13:01 | PT.OPDS ---
Current Diagnoses Presence of left artificial knee joint (02/05/24) Visit Care Team Role Provider Type Alfredo Ochoa MD Family Provider Physician Primary Care Provider Specialty: Internal Medicine Address: [address] [place] [address], [id number] Email: [email or web address] Giovanny Cueto MD Attending Provider Non-Staff Referring Provider Specialty: Orthopedic Surgery Address: [address] [place] [address], [address], [place], [address] Email: Visit Number Visit Number 11 Discharge Summary PT-OP-B Current Condition Start: 12/26/23 17:33 Freq: Status: Active Protocol: Document 12/30/23 11:17 [facility] (Rec: 12/30/23 12:32 [facility] [id number]) Current Condition History of Current Condition Onset Date L TKA Current Complaints 12/22 History of Current Condition Pt reports L knee pain for a while and it took about 6 months to get it done in [place]. Pt reports today feels a little lightheaded and nauseas. Thinks he overdid it yesterday. He was walking a bit yesterday w/o walker and was walking around more w/ others home. He has been compliant w/HEP. No stairs at home. Pt has a step in shower w/handle and has a stool in there for now and indep besides helping wash back . Pt likes to hike, go to gym (ellipitical), and sail. Has been unable to hike recently d /t to knee pain. Did PT pre-op also. has hx of L5-S1 fusion years ago with only current mild pain. Treatment Goals Patient/Caregiver Goals Get back to hiking, sailing, gym and full activities. PT-OP-C Subjective Start: 12/26/23 17:33 Freq: Status: Active Protocol: Document 02/05/24 11:25 [facility] (Rec: 02/05/24 12:29 [facility] [id number]) OP-PT Subjective Patient Comments Patient Comments pt reports he has been doign HS curls and leg extensions at gym. walking 1-2 miles on flat ground w/occasional hills . down hills are difficult w/ control PT-OP-F Manual Assessment Start: 12/26/23 17:33 Freq: Status: Active Protocol: Document 12/30/23 11:17 [facility] (Rec: 12/30/23 12:32 [facility] [id number]) Manual Assessments Soft Tissue Assessment Soft Tissue Mobility Assessment bruising med adductor, lat calf, post HS, med quad, ITB PT-OP-G Mobility & Gait Start: 12/26/23 17:33 Freq: Status: Active Protocol: Document 12/30/23 11:17 [facility] (Rec: 12/30/23 12:32 [id number] OP Mobility Evaluation Transfers Sit to Stand w/LLE fwd and use of FWW Bed to Chair Transfers indep w/bed mobility OP Gait Assessment Comments Gait Comments Amb w/FWW w/dec stance time on LLE PT-OP-K Range of Motion Start: 12/26/23 17:33 Freq: Status: Active Protocol: Document 01/23/24 13:02 [facility] (Rec: 01/23/24 17:36 [facility] [id number]) Knee Goniometric Range of Motion Knee Left Flexion Active (degrees) 111 Extension Active (degrees) 3 Comments pain PT-OP-M Strength Start: 12/26/23 17:33 Freq: Status: Active Protocol: Document 01/23/24 13:02 [facility] (Rec: 01/23/24 17:36 [id number] Hip Strength Hip Manual Muscle Testing Right Flexion (L2) 5 Normal Abduction 4- Good- External Rotation 5 Normal Internal Rotation 5 Normal Left Flexion (L2) 4 Good Abduction 4- Good- External Rotation 4 Good Internal Rotation 4- Good- Knee Strength Knee Manual Muscle Testing Right Flexion (S2) 5 Normal Extension (L3) 5 Normal Left Flexion (S2) 4- Good- Extension (L3) 4 Good Ankle/Foot Strength Ankle and Foot Manual Muscle Testing Right Dorsiflexion (L4) 5 Normal Plantarflexion (S1) 5 Normal Comments 20 heel raises B Left Dorsiflexion (L4) 5 Normal Plantarflexion (S1) 5 Normal Comments slightly dec heel raise range PT-OP-T Assessment and Plan Start: 12/26/23 17:33 Freq: Status: Active Protocol: Document 03/31/24 12:52 [facility] (Rec: 03/31/24 13:01 [facility] [id number]) Physical Therapy Assessment Goals gait Short Term Goal (STG) Pt will be able to amb w/o AD w/good mechanics. STG Duration achieved 01/22 Usp Goal (LTG) Pt will report return to small hikes and walks on both uneven and even surfaces w/o pain greater than 2/10 LTG Duration achieved strength Short Term Goal (STG) Pt will be indep w/HEP STG Duration achieved advancing as able Agriculture Manager Goal (LTG) Pt will score at least 4+/5 on LLE MMT to show improved strength and stability in order to return to full recreational activities. 01/22-progressing LTG Duration 03/09 ROM Short Term Goal (STG) Pt will have 0-110 deg ROM 01/22-3-111 that improves w/ manual STG Duration 01/21 Agriculture Manager Goal (LTG) Pt will have 0-125 deg flex and be able to do stairs reciprocally w/o rail. LTG Duration 03/09 Two Impairment balance Short Term Goal (STG) Pt will be able to do SLS B for at least 5 sec STG Duration 01/26 Usp Goal (LTG) Pt will be able to do SLS B for at least 15 sec LTG Duration 03/09 Assessment Summary Assessment Pt not seen for 54 days and has been contacted via text as phone calls not working. Pt responded back that no longer has issues w/knee and had returned to full activity. Pt DC d/t pt request and pt reporting no issues. Physical Therapy Plan Discharge Physical Therapy Discharge Reasons Goals Met
== END 2024-03-31 14:56 | disposition home or self-care (01) ==
LOC: PHYS 11:15
PROVIDERS: Family Provider Internal Medicine; PCP Internal Medicine; Referring Provider Orthopaedic Surgery; Visit Provider Orthopaedic Surgery
DX: Z96.652 Presence of left artificial knee joint (principal)
CPT/HCPCS: 97110; 97112; 97116; 97140; 97162

== ENCOUNTER → 2024-03-30 14:04 | Outpatient (CLI) | payer MEDICARE, OTHER, SELFPAY ==
[2024-03-30 15:08] LABS: Prostate Specific Antigen 2.06 ng/mL (0.10-4.00)
== END ==
LOC: LAB 14:05
PROVIDERS: Family Provider Internal Medicine; PCP Internal Medicine; Referring Provider Urology; Visit Provider Urology
DX: R97.20 Elevated prostate specific antigen [PSA] (principal)
CPT/HCPCS: 36415; 84153

== ENCOUNTER → 2024-04-02 12:33 | Outpatient (CLI) | payer MEDICARE, OTHER, SELFPAY ==
[2024-04-02 14:16] LABS: BUN Creatinine Ratio 32.9 (6-22); Blood Urea Nitrogen 24 mg/dL (9-20); Calcium 9.6 mg/dL (8.4-10.2); Carbon Dioxide 24 mmol/L (22-32); Chloride 105 mmol/L (98-107); Estimated Glomerular Filt Rate > 60 mL/min (>60); Glucose 86 mg/dL (80-110); HEMOLYSIS < 15 (0-50); Magnesium 1.6 mg/dL (1.6-2.3); Potassium 4.7 mmol/L (3.4-5.1); Sodium 139 mmol/L (137-145)
== END ==
PROVIDERS: Family Provider Internal Medicine; PCP Internal Medicine; Referring Provider Nurse Practitioner Acute Care; Visit Provider Nurse Practitioner Acute Care
DX: Z51.81 Encounter for therapeutic drug level monitoring (principal); I48.19 Other persistent atrial fibrillation; Z79.899 Other long term (current) drug therapy
CPT/HCPCS: 36415; 80048; 83735

== ENCOUNTER → 2024-07-16 13:40 | Outpatient (CLI) | payer MEDICARE, OTHER, SELFPAY ==
[2024-07-16 15:31] LABS: BUN Creatinine Ratio 24.7 (6-22); Blood Urea Nitrogen 24 mg/dL (9-20); Calcium 9.7 mg/dL (8.4-10.2); Carbon Dioxide 29 mmol/L (22-32); Chloride 105 mmol/L (98-107); Estimated Glomerular Filt Rate > 60 mL/min (>60); Glucose 92 mg/dL (80-110); HEMOLYSIS < 15 (0-50); Potassium 4.9 mmol/L (3.4-5.1); Sodium 138 mmol/L (137-145)
== END ==
PROVIDERS: Family Provider Internal Medicine; PCP Internal Medicine; Referring Provider Nurse Practitioner; Visit Provider Nurse Practitioner
DX: Z51.81 Encounter for therapeutic drug level monitoring (principal); Z79.899 Other long term (current) drug therapy
CPT/HCPCS: 36415; 80048

== ENCOUNTER → 2024-10-13 14:17 | Outpatient (CLI) | payer MEDICARE, OTHER, SELFPAY ==
[2024-10-13 15:27] LABS: Cholesterol 174 mg/dL (140-199); HDL Cholesterol 104 mg/dL (40-60); LDL Cholesterol Calculated 59 mg/dL (<100); Triglycerides 54 mg/dL (35-150)
[2024-10-13 15:27] LABS: BUN Creatinine Ratio 26.8 (6-22); Blood Urea Nitrogen 26 mg/dL (9-20); Calcium 9.6 mg/dL (8.4-10.2); Carbon Dioxide 28 mmol/L (22-32); Chloride 106 mmol/L (98-107); Estimated Glomerular Filt Rate > 60 mL/min (>60); Glucose 116 mg/dL (80-110); HEMOLYSIS < 15 (0-50); Potassium 4.2 mmol/L (3.4-5.1); Sodium 139 mmol/L (137-145)
== END ==
PROVIDERS: Family Provider Internal Medicine; PCP Internal Medicine; Referring Provider Nurse Practitioner; Visit Provider Nurse Practitioner
DX: E78.2 Mixed hyperlipidemia (principal); Z51.81 Encounter for therapeutic drug level monitoring; Z79.899 Other long term (current) drug therapy
CPT/HCPCS: 36415; 80048; 80061

== ENCOUNTER → 2025-04-14 11:43 | Outpatient (CLI) | payer MEDICARE, OTHER, SELFPAY ==
[2025-04-14 13:21] LABS: Blood Urea Nitrogen 19 mg/dL (9-20); Calcium 9.6 mg/dL (8.4-10.2); Carbon Dioxide 21 mmol/L (22-32); Chloride 107 mmol/L (98-107); Estimated Glomerular Filt Rate > 60 mL/min (>60); Glucose 79 mg/dL (70-99); HEMOLYSIS < 15 (0-50); Magnesium 1.6 mg/dL (1.6-2.3); Potassium 4.1 mmol/L (3.4-5.1); Sodium 140 mmol/L (137-145)
== END ==
PROVIDERS: Family Provider Internal Medicine; PCP Internal Medicine; Referring Provider Nurse Practitioner Family; Visit Provider Nurse Practitioner Family
DX: Z79.899 Other long term (current) drug therapy (principal); Z51.81 Encounter for therapeutic drug level monitoring
CPT/HCPCS: 36415; 80048; 83735

== ENCOUNTER → 2025-04-20 13:17 | Outpatient (CLI) | payer MEDICARE, OTHER, SELFPAY ==
[2025-04-20 15:33] LABS: Prostate Specific Antigen 2.65 ng/mL (0.10-4.00)
== END ==
PROVIDERS: Family Provider Internal Medicine; PCP Internal Medicine; Referring Provider Urology; Visit Provider Urology
DX: R97.20 Elevated prostate specific antigen [PSA] (principal)
CPT/HCPCS: 36415; 84153